=== PATIENT | male | born 1945 | race Caucasian/White ===

== ENCOUNTER 2020-08-12 07:34 | Outpatient (REF) | payer MEDICARE, SELFPAY ==
[2020-08-12 11:46] LABS: Estimated Average Glucose 174 mg/dL; Hemoglobin A1c % 7.7 %
== END 2020-08-12 07:35 | disposition home or self-care (01) ==
LOC: HO.MANLR 07:34
PROVIDERS: PCP Internal Medicine; Visit Provider Internal Medicine
DX: E11.9 Type 2 diabetes mellitus without complications (principal)
CPT/HCPCS: 83036

== ENCOUNTER 2020-11-13 08:08 | Outpatient (REF) | payer MEDICARE, SELFPAY ==
[2020-11-13 12:19] LABS: Alanine Aminotransferase 31 U/L (0-40); Albumin Level 4.2 g/dL (3.5-5.0); Alkaline Phosphatase 97 U/L (39-117); Anion Gap 11 (12-20); Aspartate Amino Transferase 22 U/L (5-37); Bilirubin Total 0.6 mg/dL (0.0-1.0); Blood Urea Nitrogen 13 mg/dL (9-16); Calcium 8.2 mg/dL (8.4-10.2); Carbon Dioxide 29 mmol/L (22-29); Chloride 101 mmol/L (96-108); Cholesterol 125 mg/dL; Estimated Glomerular Filt Rate > 60; Glucose Fasting 192 mg/dL (60-99); HDL Cholesterol 31 mg/dL; LDL Cholesterol Calculated 74 mg/dl; Sodium 137 mmol/L (135-145); Total Protein 6.3 g/dL (6.5-8.0); Triglycerides 101 mg/dL
[2020-11-13 14:01] LABS: Estimated Average Glucose 169 mg/dL; Hemoglobin A1c % 7.5 %
== END 2020-11-13 08:09 | disposition home or self-care (01) ==
LOC: HO.MANLR 08:08
PROVIDERS: PCP Internal Medicine; Visit Provider Internal Medicine
DX: E11.9 Type 2 diabetes mellitus without complications (principal)
CPT/HCPCS: 36415; 80053; 80061; 83036

== ENCOUNTER 2021-02-10 07:35 | Outpatient (REF) | payer MEDICARE, SELFPAY ==
[2021-02-10 12:56] LABS: Estimated Average Glucose 171 mg/dL; Hemoglobin A1c % 7.6 %
== END 2021-02-10 07:36 | disposition home or self-care (01) ==
LOC: HO.MANLDS 07:35
PROVIDERS: PCP Internal Medicine; Visit Provider Internal Medicine
DX: E11.9 Type 2 diabetes mellitus without complications (principal)
CPT/HCPCS: 36415; 83036

== ENCOUNTER 2021-02-17 14:46 | Outpatient (REF) | payer MEDICARE, SELFPAY ==
[2021-02-17 19:13] LABS: INTERNATIONAL NORM RATIO 4.5 (0.9-1.1); Prothrombin Time 54.5 SEC (10.8-13.0)
== END 2021-02-17 14:47 | disposition home or self-care (01) ==
LOC: HO.MANLDS 14:46
PROVIDERS: PCP Internal Medicine; Visit Provider Internal Medicine
DX: I48.0 Paroxysmal atrial fibrillation (principal); Z79.01 Long term (current) use of anticoagulants; Z51.81 Encounter for therapeutic drug level monitoring
CPT/HCPCS: 36415; 85610

== ENCOUNTER 2021-02-21 07:40 | Outpatient (REF) | payer MEDICARE, SELFPAY ==
[2021-02-21 11:13] LABS: INTERNATIONAL NORM RATIO 3.3 (0.9-1.1); Prothrombin Time 39.1 SEC (10.8-13.0)
== END 2021-02-21 07:41 | disposition home or self-care (01) ==
LOC: HO.MANLDS 07:40
PROVIDERS: Visit Provider Internal Medicine
DX: I48.0 Paroxysmal atrial fibrillation (principal)
CPT/HCPCS: 36415; 85610

== ENCOUNTER 2021-02-28 07:43 | Outpatient (REF) | payer MEDICARE, SELFPAY ==
[2021-02-28 11:47] LABS: Prothrombin Time 61.1 SEC (10.8-13.0)
[2021-02-28 11:53] LABS: INTERNATIONAL NORM RATIO 5.1 (0.9-1.1)
== END 2021-02-28 07:44 | disposition home or self-care (01) ==
LOC: HO.MANLDS 07:43
PROVIDERS: PCP Internal Medicine; Visit Provider Internal Medicine
DX: I48.0 Paroxysmal atrial fibrillation (principal)
CPT/HCPCS: 36415; 85610

== ENCOUNTER 2021-03-03 07:28 | Outpatient (REF) | payer MEDICARE, SELFPAY ==
[2021-03-03 12:05] LABS: INTERNATIONAL NORM RATIO 1.9 (0.9-1.1)
== END 2021-03-03 07:29 | disposition home or self-care (01) ==
LOC: HO.MANLR 07:28
PROVIDERS: PCP Internal Medicine; Visit Provider Internal Medicine
DX: I48.0 Paroxysmal atrial fibrillation (principal)
CPT/HCPCS: 36415; 85610

== ENCOUNTER 2021-03-11 07:27 | Outpatient (REF) | payer MEDICARE, SELFPAY ==
[2021-03-11 12:13] LABS: INTERNATIONAL NORM RATIO 1.6 (0.9-1.1); Prothrombin Time 19.5 SEC (10.8-13.0)
== END 2021-03-11 07:28 | disposition home or self-care (01) ==
LOC: HO.MANLDS 07:27
PROVIDERS: Visit Provider Internal Medicine
DX: I48.0 Paroxysmal atrial fibrillation (principal)
CPT/HCPCS: 36415; 85610

== ENCOUNTER 2021-03-14 07:39 | Outpatient (REF) | payer MEDICARE, SELFPAY ==
[2021-03-14 11:08] LABS: INTERNATIONAL NORM RATIO 2.1 (0.9-1.1); Prothrombin Time 25.1 SEC (10.8-13.0)
== END 2021-03-14 07:40 | disposition home or self-care (01) ==
LOC: HO.MANLDS 07:39
PROVIDERS: PCP Internal Medicine; Visit Provider Internal Medicine
DX: I48.0 Paroxysmal atrial fibrillation (principal)
CPT/HCPCS: 36415; 85610

== ENCOUNTER 2021-03-18 08:10 | Outpatient (REF) | payer MEDICARE, SELFPAY ==
[2021-03-18 11:38] LABS: INTERNATIONAL NORM RATIO 2.2 (0.9-1.1); Prothrombin Time 26.5 SEC (10.8-13.0)
== END 2021-03-18 08:11 | disposition home or self-care (01) ==
LOC: HO.MANLDS 08:10
PROVIDERS: PCP Internal Medicine; Visit Provider Internal Medicine
DX: I48.0 Paroxysmal atrial fibrillation (principal)
CPT/HCPCS: 36415; 85610

== ENCOUNTER 2021-03-24 07:47 | Outpatient (REF) | payer MEDICARE, SELFPAY ==
[2021-03-24 11:17] LABS: INTERNATIONAL NORM RATIO 2.7 (0.9-1.1)
== END 2021-03-24 07:48 | disposition home or self-care (01) ==
LOC: HO.MANLDS 07:47
PROVIDERS: PCP Internal Medicine; Visit Provider Internal Medicine
DX: I48.0 Paroxysmal atrial fibrillation (principal)
CPT/HCPCS: 36415; 85610

== ENCOUNTER 2021-04-01 08:02 | Outpatient (REF) | payer MEDICARE, SELFPAY ==
[2021-04-01 11:25] LABS: INTERNATIONAL NORM RATIO 2.5 (0.9-1.1); Prothrombin Time 29.1 SEC (9.9-13.0)
== END 2021-04-01 08:03 | disposition home or self-care (01) ==
LOC: HO.MANLDS 08:02
PROVIDERS: PCP Internal Medicine; Visit Provider Internal Medicine
DX: I48.0 Paroxysmal atrial fibrillation (principal)
CPT/HCPCS: 36415; 85610

== ENCOUNTER 2021-04-02 07:34 | Outpatient (REF) | payer MEDICARE, SELFPAY ==
[2021-04-02 11:14] LABS: Estimated Average Glucose 171 mg/dL; Hemoglobin A1c % 7.6 %
[2021-04-02 11:31] LABS: Alanine Aminotransferase 48 U/L (0-40); Albumin Level 4.2 g/dL (3.5-5.0); Alkaline Phosphatase 97 U/L (39-117); Anion Gap 15 (12-20); Aspartate Amino Transferase 36 U/L (5-37); Bilirubin Total 0.6 mg/dL (0.0-1.0); Blood Urea Nitrogen 13 mg/dL (9-16); Calcium 9.3 mg/dL (8.4-10.2); Carbon Dioxide 28 mmol/L (22-29); Chloride 104 mmol/L (96-108); Cholesterol 144 mg/dL; Estimated Glomerular Filt Rate > 60; Glucose Fasting 137 mg/dL (60-99); HDL Cholesterol 36 mg/dL; LDL Cholesterol Calculated 88 mg/dl; Potassium 4.6 mmol/L (3.3-5.1); Sodium 142 mmol/L (135-145); Total Protein 6.7 g/dL (6.5-8.0); Triglycerides 103 mg/dL
[2021-04-02 11:33] LABS: Creatinine Urine 57.82 mg/dL; Microalbum/Creatinine Ratio Ur 164.3 ug/mg cr
== END 2021-04-02 07:35 | disposition home or self-care (01) ==
LOC: HO.MANLDS 07:34
PROVIDERS: PCP Internal Medicine; Visit Provider Internal Medicine
DX: E11.9 Type 2 diabetes mellitus without complications (principal)
CPT/HCPCS: 36415; 80053; 80061; 82043; 83036

== ENCOUNTER 2021-04-08 07:45 | Outpatient (REF) | payer MEDICARE, SELFPAY ==
[2021-04-08 11:29] LABS: INTERNATIONAL NORM RATIO 3.4 (0.9-1.1); Prothrombin Time 39.4 SEC (9.9-13.0)
== END 2021-04-08 07:46 | disposition home or self-care (01) ==
LOC: HO.MANLDS 07:45
PROVIDERS: PCP Internal Medicine; Visit Provider Internal Medicine
DX: I48.0 Paroxysmal atrial fibrillation (principal)
CPT/HCPCS: 36415; 85610

== ENCOUNTER 2021-04-14 11:00 | Outpatient (REF) | payer MEDICARE, SELFPAY ==
[2021-04-14 12:54] LABS: INTERNATIONAL NORM RATIO 3.3 (0.9-1.1); Prothrombin Time 38.9 SEC (9.9-13.0)
== END 2021-04-14 11:01 | disposition home or self-care (01) ==
LOC: HO.MANLDS 11:00
PROVIDERS: PCP Internal Medicine; Visit Provider Internal Medicine
DX: I48.0 Paroxysmal atrial fibrillation (principal)
CPT/HCPCS: 36415; 85610

== ENCOUNTER 2021-04-22 07:35 | Outpatient (REF) | payer MEDICARE, SELFPAY ==
[2021-04-22 11:52] LABS: INTERNATIONAL NORM RATIO 1.7 (0.9-1.1)
== END 2021-04-22 07:36 | disposition home or self-care (01) ==
LOC: HO.MANLDS 07:35
PROVIDERS: PCP Internal Medicine; Visit Provider Internal Medicine
DX: I48.0 Paroxysmal atrial fibrillation (principal)
CPT/HCPCS: 36415; 85610

== ENCOUNTER 2021-04-29 07:41 | Outpatient (REF) | payer MEDICARE, SELFPAY ==
[2021-04-29 11:35] LABS: INTERNATIONAL NORM RATIO 1.9 (0.9-1.1); Prothrombin Time 22.3 SEC (9.9-13.0)
== END 2021-04-29 07:42 | disposition home or self-care (01) ==
LOC: HO.MANLDS 07:41
PROVIDERS: PCP Internal Medicine; Visit Provider Internal Medicine
DX: I48.0 Paroxysmal atrial fibrillation (principal)
CPT/HCPCS: 36415; 85610

== ENCOUNTER 2021-05-13 07:35 | Outpatient (REF) | payer MEDICARE, SELFPAY ==
[2021-05-13 11:15] LABS: INTERNATIONAL NORM RATIO 2.6 (0.9-1.1); Prothrombin Time 30.1 SEC (9.9-13.0)
== END 2021-05-13 07:36 | disposition home or self-care (01) ==
LOC: HO.MANLDS 07:35
PROVIDERS: PCP Internal Medicine; Visit Provider Internal Medicine
DX: I48.0 Paroxysmal atrial fibrillation (principal)
CPT/HCPCS: 36415; 85610

== ENCOUNTER 2021-06-03 07:43 | Outpatient (REF) | payer MEDICARE, SELFPAY ==
[2021-06-03 12:16] LABS: INTERNATIONAL NORM RATIO 2.4 (0.9-1.1); Prothrombin Time 27.8 SEC (9.9-13.0)
[2021-06-03 13:32] LABS: Estimated Average Glucose 163 mg/dL; Hemoglobin A1c % 7.3 %
== END 2021-06-03 07:44 | disposition home or self-care (01) ==
LOC: HO.MANLDS 07:43
PROVIDERS: PCP Internal Medicine; Visit Provider Internal Medicine
DX: E10.9 Type 1 diabetes mellitus without complications (principal); I48.0 Paroxysmal atrial fibrillation
CPT/HCPCS: 36415; 83036; 85610

== ENCOUNTER 2021-06-24 08:19 | Outpatient (REF) | payer MEDICARE, SELFPAY ==
[2021-06-24 11:20] LABS: INTERNATIONAL NORM RATIO 2.3 (0.9-1.1); Prothrombin Time 26.1 SEC (9.9-13.0)
[2021-06-24 11:41] LABS: Estimated Average Glucose 166 mg/dL; Hemoglobin A1c % 7.4 %
== END 2021-06-24 08:20 | disposition home or self-care (01) ==
LOC: HO.MANLDS 08:19
PROVIDERS: PCP Internal Medicine; Visit Provider Internal Medicine
DX: E10.9 Type 1 diabetes mellitus without complications (principal); I48.0 Paroxysmal atrial fibrillation
CPT/HCPCS: 36415; 83036; 85610

== ENCOUNTER 2021-07-22 08:38 | Outpatient (REF) | payer MEDICARE, SELFPAY ==
[2021-07-22 11:37] LABS: Prothrombin Time 34.6 SEC (9.9-13.0)
== END 2021-07-22 08:39 | disposition home or self-care (01) ==
LOC: HO.MANLDS 08:38
PROVIDERS: PCP Internal Medicine; Visit Provider Internal Medicine
DX: I48.0 Paroxysmal atrial fibrillation (principal)
CPT/HCPCS: 36415; 85610

== ENCOUNTER 2021-08-04 07:35 | Outpatient (REF) | payer MEDICARE, SELFPAY ==
[2021-08-04 11:36] LABS: INTERNATIONAL NORM RATIO 2.3 (0.9-1.1); Prothrombin Time 27.2 SEC (9.9-13.0)
== END 2021-08-04 07:36 | disposition home or self-care (01) ==
LOC: HO.MANLDS 07:35
PROVIDERS: PCP Internal Medicine; Visit Provider Internal Medicine
DX: I48.0 Paroxysmal atrial fibrillation (principal)
CPT/HCPCS: 36415; 85610

== ENCOUNTER 2021-09-01 08:02 | Outpatient (REF) | payer MEDICARE, SELFPAY ==
[2021-09-01 11:13] LABS: INTERNATIONAL NORM RATIO 2.2 (0.9-1.1); Prothrombin Time 25.2 SEC (9.9-13.0)
[2021-09-01 11:19] LABS: Estimated Average Glucose 166 mg/dL; Hemoglobin A1c % 7.4 %
== END 2021-09-01 08:03 | disposition home or self-care (01) ==
LOC: HO.MANLDS 08:02
PROVIDERS: PCP Internal Medicine; Visit Provider Internal Medicine
DX: E10.9 Type 1 diabetes mellitus without complications (principal); I48.0 Paroxysmal atrial fibrillation
CPT/HCPCS: 36415; 83036; 85610

== ENCOUNTER 2021-09-29 08:09 | Outpatient (REF) | payer MEDICARE, SELFPAY ==
[2021-09-29 11:37] LABS: INTERNATIONAL NORM RATIO 2.4 (0.9-1.1); Prothrombin Time 27.5 SEC (9.9-13.0)
== END 2021-09-29 08:10 | disposition home or self-care (01) ==
LOC: HO.MANLDS 08:09
PROVIDERS: PCP Internal Medicine; Visit Provider Internal Medicine
DX: I48.0 Paroxysmal atrial fibrillation (principal)
CPT/HCPCS: 36415; 85610

== ENCOUNTER 2021-10-27 07:53 | Outpatient (REF) | payer MEDICARE, SELFPAY ==
[2021-10-27 11:17] LABS: Prothrombin Time 22.7 SEC (9.9-13.0)
== END 2021-10-27 07:54 | disposition home or self-care (01) ==
LOC: HO.MANLDS 07:53
PROVIDERS: PCP Internal Medicine; Visit Provider Internal Medicine
DX: I48.0 Paroxysmal atrial fibrillation (principal)
CPT/HCPCS: 36415; 85610

== ENCOUNTER 2021-11-03 08:41 | Outpatient (REF) | payer MEDICARE, SELFPAY ==
[2021-11-03 11:24] LABS: Alanine Aminotransferase 49 U/L (0-40); Albumin Level 4.1 g/dL (3.5-5.0); Alkaline Phosphatase 88 U/L (39-117); Anion Gap 11 (12-20); Aspartate Amino Transferase 32 U/L (5-37); Bilirubin Total 0.8 mg/dL (0.0-1.0); Blood Urea Nitrogen 22 mg/dL (9-16); Calcium 9.1 mg/dL (8.4-10.2); Carbon Dioxide 29 mmol/L (22-29); Chloride 104 mmol/L (96-108); Cholesterol 159 mg/dL; Estimated Glomerular Filt Rate > 60; Glucose Fasting 157 mg/dL (60-99); HDL Cholesterol 28 mg/dL; LDL Cholesterol Calculated 86 mg/dl; Potassium 4.1 mmol/L (3.3-5.1); Sodium 140 mmol/L (135-145); Total Protein 6.5 g/dL (6.5-8.0); Triglycerides 227 mg/dL
[2021-11-03 11:59] LABS: Creatinine Urine 112.96 mg/dL; Microalbum/Creatinine Ratio Ur 80.5 ug/mg cr
[2021-11-03 12:09] LABS: Estimated Average Glucose 169 mg/dL; Hemoglobin A1c % 7.5 %
== END 2021-11-03 08:42 | disposition home or self-care (01) ==
LOC: HO.MANLDS 08:41
PROVIDERS: PCP Internal Medicine; Visit Provider Internal Medicine
DX: E10.9 Type 1 diabetes mellitus without complications (principal)
CPT/HCPCS: 36415; 80053; 80061; 82043; 83036

== ENCOUNTER 2021-11-24 08:56 | Outpatient (REF) | payer MEDICARE, SELFPAY ==
[2021-11-24 11:17] LABS: INTERNATIONAL NORM RATIO 1.8 (0.9-1.1); Prothrombin Time 21.1 SEC (9.9-13.0)
== END 2021-11-24 08:57 | disposition home or self-care (01) ==
LOC: HO.MANLDS 08:56
PROVIDERS: PCP Internal Medicine; Visit Provider Internal Medicine
DX: I48.0 Paroxysmal atrial fibrillation (principal)
CPT/HCPCS: 36415; 85610

== ENCOUNTER 2021-12-22 08:47 | Outpatient (REF) | payer MEDICARE, SELFPAY ==
[2021-12-22 11:53] LABS: INTERNATIONAL NORM RATIO 1.9 (0.9-1.1)
== END 2021-12-22 08:48 | disposition home or self-care (01) ==
LOC: HO.MANLDS 08:47
PROVIDERS: PCP Internal Medicine; Visit Provider Internal Medicine
DX: I48.0 Paroxysmal atrial fibrillation (principal)
CPT/HCPCS: 36415; 85610

== ENCOUNTER 2022-01-23 09:28 | Outpatient (REF) | payer MEDICARE, SELFPAY ==
[2022-01-23 11:39] LABS: INTERNATIONAL NORM RATIO 2.3 (0.9-1.1)
[2022-01-23 11:40] LABS: Estimated Average Glucose 157 mg/dL; Hemoglobin A1c % 7.1 %
== END 2022-01-23 09:29 | disposition home or self-care (01) ==
LOC: HO.MANLDS 09:28
PROVIDERS: PCP Internal Medicine; Visit Provider Internal Medicine
DX: E10.9 Type 1 diabetes mellitus without complications (principal); I48.0 Paroxysmal atrial fibrillation
CPT/HCPCS: 36415; 83036; 85610

== ENCOUNTER 2022-02-24 07:43 | Outpatient (REF) | payer MEDICARE, SELFPAY ==
[2022-02-24 11:11] LABS: INTERNATIONAL NORM RATIO 2.6 (0.9-1.1); Prothrombin Time 30.2 SEC (9.9-13.0)
== END 2022-02-24 07:44 | disposition home or self-care (01) ==
LOC: HO.MANLDS 07:43
PROVIDERS: Visit Provider Internal Medicine
DX: I48.0 Paroxysmal atrial fibrillation (principal)
CPT/HCPCS: 36415; 85610

== ENCOUNTER 2022-03-24 07:45 | Outpatient (REF) | payer MEDICARE, SELFPAY ==
[2022-03-24 12:18] LABS: INTERNATIONAL NORM RATIO 2.3 (0.9-1.1); Prothrombin Time 26.9 SEC (10.0-13.1)
== END 2022-03-24 07:46 | disposition home or self-care (01) ==
LOC: HO.MANLDS 07:45
PROVIDERS: Visit Provider Internal Medicine
DX: I48.0 Paroxysmal atrial fibrillation (principal)
CPT/HCPCS: 36415; 85610

== ENCOUNTER 2022-04-20 07:30 | Outpatient (REF) | payer MEDICARE, SELFPAY ==
[2022-04-20 12:01] LABS: INTERNATIONAL NORM RATIO 3.3 (0.9-1.1); Prothrombin Time 39.5 SEC (10.0-13.1)
== END 2022-04-20 07:31 | disposition home or self-care (01) ==
LOC: HO.MANLDS 07:30
PROVIDERS: Visit Provider Internal Medicine
DX: I48.0 Paroxysmal atrial fibrillation (principal)
CPT/HCPCS: 36415; 85610

== ENCOUNTER 2022-04-29 07:31 | Outpatient (REF) | payer MEDICARE, SELFPAY ==
[2022-04-29 13:57] LABS: Estimated Average Glucose 157 mg/dL; Hemoglobin A1c % 7.1 %
[2022-04-29 14:20] LABS: Creatinine Urine 43.16 mg/dL; Microalbum/Creatinine Ratio Ur 53.2 ug/mg cr
[2022-04-29 14:39] LABS: Alanine Aminotransferase 66 U/L (0-40); Alkaline Phosphatase 84 U/L (39-117); Anion Gap 16 (12-20); Aspartate Amino Transferase 46 U/L (5-37); Bilirubin Total 0.7 mg/dL (0.0-1.0); Blood Urea Nitrogen 14 mg/dL (9-16); Calcium 8.5 mg/dL (8.4-10.2); Carbon Dioxide 26 mmol/L (22-29); Chloride 105 mmol/L (96-108); Cholesterol 124 mg/dL; Estimated Glomerular Filt Rate > 60; Glucose Fasting 160 mg/dL (60-99); HDL Cholesterol 31 mg/dL; LDL Cholesterol Calculated 67 mg/dl; Potassium 4.2 mmol/L (3.3-5.1); Sodium 143 mmol/L (135-145); Total Protein 6.4 g/dL (6.5-8.0); Triglycerides 131 mg/dL
== END 2022-04-29 07:32 | disposition home or self-care (01) ==
LOC: HO.MANLDS 07:31
PROVIDERS: Visit Provider Internal Medicine
DX: E10.9 Type 1 diabetes mellitus without complications (principal)
CPT/HCPCS: 36415; 80053; 80061; 82043; 83036

== ENCOUNTER 2022-05-20 07:37 | Outpatient (REF) | payer MEDICARE, SELFPAY ==
[2022-05-20 11:03] LABS: INTERNATIONAL NORM RATIO 3.3 (0.9-1.1); Prothrombin Time 39.5 SEC (10.0-13.1)
[2022-05-20 11:13] LABS: Estimated Average Glucose 157 mg/dL; Hemoglobin A1c % 7.1 %
== END 2022-05-20 07:38 | disposition home or self-care (01) ==
LOC: HO.MANLDS 07:37
PROVIDERS: Visit Provider Internal Medicine
DX: E10.9 Type 1 diabetes mellitus without complications (principal); I48.0 Paroxysmal atrial fibrillation
CPT/HCPCS: 36415; 83036; 85610

== ENCOUNTER 2022-06-03 07:35 | Outpatient (REF) | payer MEDICARE, SELFPAY ==
[2022-06-03 11:46] LABS: INTERNATIONAL NORM RATIO 2.2 (0.9-1.1); Prothrombin Time 25.7 SEC (10.0-13.1)
== END 2022-06-03 07:36 | disposition home or self-care (01) ==
LOC: HO.MANLDS 07:35
PROVIDERS: Visit Provider Internal Medicine
DX: I48.0 Paroxysmal atrial fibrillation (principal)
CPT/HCPCS: 36415; 85610

== ENCOUNTER 2022-06-24 07:32 | Outpatient (REF) | payer MEDICARE, SELFPAY ==
[2022-06-24 11:28] LABS: INTERNATIONAL NORM RATIO 2.5 (0.9-1.1); Prothrombin Time 30.4 SEC (10.0-13.1)
== END 2022-06-24 07:33 | disposition home or self-care (01) ==
LOC: HO.MANLDS 07:32
PROVIDERS: Visit Provider Internal Medicine
DX: I48.0 Paroxysmal atrial fibrillation (principal); Z79.01 Long term (current) use of anticoagulants
CPT/HCPCS: 36415; 85610

== ENCOUNTER 2022-07-22 07:33 | Outpatient (REF) | payer MEDICARE, SELFPAY ==
[2022-07-22 11:10] LABS: INTERNATIONAL NORM RATIO 2.5 (0.9-1.1); Prothrombin Time 29.5 SEC (10.0-13.1)
== END 2022-07-22 07:34 | disposition home or self-care (01) ==
LOC: HO.MANLDS 07:33
PROVIDERS: Visit Provider Internal Medicine
DX: I48.0 Paroxysmal atrial fibrillation (principal)
CPT/HCPCS: 36415; 85610

== ENCOUNTER 2022-08-05 07:59 | Outpatient (REF) | payer MEDICARE, SELFPAY ==
[2022-08-05 11:48] LABS: Estimated Average Glucose 169 mg/dL; Hemoglobin A1c % 7.5 %
== END 2022-08-05 08:00 | disposition home or self-care (01) ==
LOC: HO.MANLDS 07:59
PROVIDERS: Visit Provider Internal Medicine
DX: I48.0 Paroxysmal atrial fibrillation (principal); E11.9 Type 2 diabetes mellitus without complications
CPT/HCPCS: 36415; 83036

== ENCOUNTER 2022-08-19 07:36 | Outpatient (REF) | payer MEDICARE, SELFPAY ==
[2022-08-19 11:30] LABS: INTERNATIONAL NORM RATIO 2.9 (0.9-1.1); Prothrombin Time 34.4 SEC (10.0-13.1)
== END 2022-08-19 07:37 | disposition home or self-care (01) ==
LOC: HO.MANLDS 07:36
PROVIDERS: Visit Provider Physician Assistant
DX: I48.0 Paroxysmal atrial fibrillation (principal); E11.9 Type 2 diabetes mellitus without complications
CPT/HCPCS: 36415; 85610

== ENCOUNTER 2022-08-24 12:00 | Outpatient (REF) | payer MEDICARE, SELFPAY ==
[2022-08-24 13:56] LABS: MANUAL DIFF FLAG NO
[2022-08-24 14:09] LABS: Basophils Absolute Auto 0.1 X10*3/uL (0.0-0.2); Basophils Percent Auto 0.6 % (0-2); Eosinophils Absolute Auto 0.2 X10*3/uL (0.0-0.4); Eosinophils Percent Auto 1.8 % (0-4); Hematocrit 41.5 % (42.0-52.0); Hemoglobin 13.8 g/dl (14.0-18.0); Imm Gran Abs Auto 0.14 X10*3/uL (0.00-0.03); Imm Gran Pct Auto 1.5 % (0.0-0.4); Lymphocytes Absolute Auto 1.7 X10*3/uL (1.2-4.9); Lymphocytes Percent Auto 17.8 % (20-40); Mean Corpuscular HGB Conc 33.3 g/dl (31.0-36.0); Mean Corpuscular Hemoglobin 31.3 pg (27.0-33.0); Mean Corpuscular Volume 94.1 fL (80.0-98.0); Mean Platelet Volume 10.2 fL (9.4-12.4); Monocytes Percent Auto 10.1 % (2-11); Neutrophils Absolute Auto 6.5 x10*3/uL (2.0-8.3); Neutrophils Percent Auto 68.2 % (45-73); Platelet Count 249 X10*3/uL (160-400); Red Blood Count 4.41 X10*6/uL (4.60-5.80); Red Cell Distribution Width 13.4 % (11.0-16.0); White Blood Count 9.6 X10*3/uL (4.8-10.8)
[2022-08-24 14:46] LABS: Alanine Aminotransferase 95 U/L (0-40); Albumin Level 4.5 g/dL (3.5-5.0); Alkaline Phosphatase 92 U/L (39-117); Anion Gap 15 (12-20); Aspartate Amino Transferase 62 U/L (5-37); B Type Natriuretic Peptide 54 pg/mL (<100); Bilirubin Total 0.7 mg/dL (0.0-1.0); Blood Urea Nitrogen 17 mg/dL (9-16); Calcium 9.5 mg/dL (8.4-10.2); Carbon Dioxide 30 mmol/L (22-29); Chloride 100 mmol/L (96-108); Estimated Glomerular Filt Rate > 60; Glucose Random 143 mg/dL (60-115); Potassium 4.5 mmol/L (3.3-5.1); Sodium 140 mmol/L (135-145); Total Protein 7.1 g/dL (6.5-8.0)
== END 2022-08-24 12:01 | disposition home or self-care (01) ==
LOC: HO.MANLDS 12:00
PROVIDERS: Visit Provider Internal Medicine
DX: I50.9 Heart failure, unspecified (principal)
CPT/HCPCS: 36415; 80053; 83880; 85025

== ENCOUNTER 2022-09-02 07:35 | Outpatient (REF) | payer MEDICARE, SELFPAY ==
[2022-09-02 11:36] LABS: INTERNATIONAL NORM RATIO 1.7 (0.9-1.1); Prothrombin Time 20.2 SEC (10.0-13.1)
== END 2022-09-02 07:36 | disposition home or self-care (01) ==
LOC: HO.MANLDS 07:35
PROVIDERS: Visit Provider Physician Assistant
DX: I48.0 Paroxysmal atrial fibrillation (principal); E11.9 Type 2 diabetes mellitus without complications
CPT/HCPCS: 36415; 85610

== ENCOUNTER 2022-09-16 07:43 | Outpatient (REF) | payer MEDICARE, SELFPAY ==
[2022-09-16 11:28] LABS: INTERNATIONAL NORM RATIO 3.4 (0.9-1.1); Prothrombin Time 41.4 SEC (10.0-13.1)
[2022-09-16 12:15] LABS: B Type Natriuretic Peptide 42 pg/mL (<100)
== END 2022-09-16 07:44 | disposition home or self-care (01) ==
LOC: HO.MANLDS 07:43
PROVIDERS: Visit Provider Internal Medicine
DX: I50.9 Heart failure, unspecified (principal); I48.0 Paroxysmal atrial fibrillation
CPT/HCPCS: 36415; 83880; 85610

== ENCOUNTER 2022-09-23 07:27 | Outpatient (REF) | payer MEDICARE, SELFPAY ==
[2022-09-23 11:27] LABS: INTERNATIONAL NORM RATIO 2.4 (0.9-1.1); Prothrombin Time 28.7 SEC (10.0-13.1)
[2022-09-23 11:37] LABS: Estimated Average Glucose 163 mg/dL; Hemoglobin A1c % 7.3 %
[2022-09-23 12:11] LABS: Alanine Aminotransferase 72 U/L (0-40); Alkaline Phosphatase 83 U/L (39-117); Anion Gap 12 (12-20); Aspartate Amino Transferase 71 U/L (5-37); Blood Urea Nitrogen 19 mg/dL (9-16); Calcium 8.9 mg/dL (8.4-10.2); Carbon Dioxide 33 mmol/L (22-29); Chloride 101 mmol/L (96-108); Cholesterol 151 mg/dL; Estimated Glomerular Filt Rate > 60; Glucose Random 123 mg/dL (60-115); HDL Cholesterol 34 mg/dL; LDL Cholesterol Calculated 86 mg/dl; Potassium 3.7 mmol/L (3.3-5.1); Sodium 142 mmol/L (135-145); Total Protein 6.2 g/dL (6.5-8.0); Triglycerides 155 mg/dL
[2022-09-23 12:19] LABS: Bilirubin Total 0.7 mg/dL (0.0-1.0)
== END 2022-09-23 07:28 | disposition home or self-care (01) ==
LOC: HO.MANLDS 07:27
PROVIDERS: Visit Provider Internal Medicine
DX: I50.9 Heart failure, unspecified (principal); I48.0 Paroxysmal atrial fibrillation; E11.9 Type 2 diabetes mellitus without complications
CPT/HCPCS: 36415; 80053; 80061; 83036; 85610

== ENCOUNTER 2022-10-13 11:25 | Outpatient (REF) | payer MEDICARE, SELFPAY ==
[2022-10-13 15:28] LABS: INTERNATIONAL NORM RATIO 2.1 (0.9-1.1); Prothrombin Time 25.1 SEC (10.0-13.1)
== END 2022-10-13 11:26 | disposition home or self-care (01) ==
LOC: HO.MANLDS 11:25
PROVIDERS: Visit Provider Physician Assistant
DX: I48.0 Paroxysmal atrial fibrillation (principal); E11.9 Type 2 diabetes mellitus without complications
CPT/HCPCS: 36415; 85610

== ENCOUNTER 2022-11-10 07:34 | Outpatient (REF) | payer MEDICARE, SELFPAY ==
[2022-11-10 11:36] LABS: Prothrombin Time 23.6 SEC (10.0-13.1)
[2022-11-10 11:47] LABS: Estimated Average Glucose 157 mg/dL; Hemoglobin A1c % 7.1 %
[2022-11-10 12:02] LABS: Alanine Aminotransferase 68 U/L (0-40); Albumin Level 3.9 g/dL (3.5-5.0); Alkaline Phosphatase 99 U/L (39-117); Anion Gap 15 (12-20); Aspartate Amino Transferase 59 U/L (5-37); Bilirubin Total 0.8 mg/dL (0.0-1.0); Blood Urea Nitrogen 19 mg/dL (9-16); Calcium 8.9 mg/dL (8.4-10.2); Carbon Dioxide 27 mmol/L (22-29); Chloride 103 mmol/L (96-108); Cholesterol 151 mg/dL; Estimated Glomerular Filt Rate > 60; Glucose Random 217 mg/dL (60-115); HDL Cholesterol 29 mg/dL; LDL Cholesterol Calculated 72 mg/dl; Sodium 141 mmol/L (135-145); Total Protein 6.1 g/dL (6.5-8.0); Triglycerides 254 mg/dL
== END 2022-11-10 07:35 | disposition home or self-care (01) ==
LOC: HO.MANLDS 07:34
PROVIDERS: Visit Provider Physician Assistant
DX: I48.0 Paroxysmal atrial fibrillation (principal); E11.9 Type 2 diabetes mellitus without complications
CPT/HCPCS: 36415; 80053; 80061; 83036; 85610

== ENCOUNTER 2022-12-07 07:29 | Outpatient (REF) | payer MEDICARE, SELFPAY ==
[2022-12-07 11:17] LABS: INTERNATIONAL NORM RATIO 1.8 (0.9-1.1); Prothrombin Time 21.3 SEC (10.0-13.1)
== END 2022-12-07 07:30 | disposition home or self-care (01) ==
LOC: HO.MANLDS 07:29
PROVIDERS: Visit Provider Physician Assistant
DX: I48.0 Paroxysmal atrial fibrillation (principal); E11.9 Type 2 diabetes mellitus without complications
CPT/HCPCS: 36415; 85610

== ENCOUNTER 2022-12-22 07:46 | Outpatient (REF) | payer MEDICARE, SELFPAY ==
[2022-12-22 12:12] LABS: INTERNATIONAL NORM RATIO 2.3 (0.9-1.1); Prothrombin Time 27.1 SEC (10.0-13.1)
== END 2022-12-22 07:47 | disposition home or self-care (01) ==
LOC: HO.MANLDS 07:46
PROVIDERS: Visit Provider Physician Assistant
DX: I48.0 Paroxysmal atrial fibrillation (principal); E11.9 Type 2 diabetes mellitus without complications
CPT/HCPCS: 36415; 85610

== ENCOUNTER 2023-01-13 07:28 | Outpatient (REF) | payer MEDICARE, SELFPAY ==
[2023-01-13 12:22] LABS: Prothrombin Time 23.7 SEC (10.0-13.1)
== END 2023-01-13 07:29 | disposition home or self-care (01) ==
LOC: HO.MANLDS 07:28
PROVIDERS: Visit Provider Physician Assistant
DX: I48.0 Paroxysmal atrial fibrillation (principal); E11.9 Type 2 diabetes mellitus without complications
CPT/HCPCS: 36415; 85610

== ENCOUNTER 2023-02-03 07:36 | Outpatient (REF) | payer MEDICARE, SELFPAY ==
[2023-02-03 12:16] LABS: B Type Natriuretic Peptide 43 pg/mL (<100)
== END 2023-02-03 07:37 | disposition home or self-care (01) ==
LOC: HO.MANLDS 07:36
PROVIDERS: Visit Provider Internal Medicine
DX: I50.9 Heart failure, unspecified (principal)
CPT/HCPCS: 36415; 83880

== ENCOUNTER 2023-02-09 07:40 | Outpatient (REF) | payer MEDICARE, SELFPAY ==
[2023-02-09 11:42] LABS: Prothrombin Time 36.3 SEC (10.0-13.1)
[2023-02-09 14:20] LABS: B Type Natriuretic Peptide 41 pg/mL (<100)
== END 2023-02-09 07:41 | disposition home or self-care (01) ==
LOC: HO.MANLDS 07:40
PROVIDERS: Visit Provider Internal Medicine
DX: I48.0 Paroxysmal atrial fibrillation (principal); E11.9 Type 2 diabetes mellitus without complications; I50.9 Heart failure, unspecified
CPT/HCPCS: 36415; 83880; 85610

== ENCOUNTER 2023-03-08 07:39 | Outpatient (REF) | payer MEDICARE, SELFPAY ==
[2023-03-08 11:40] LABS: Alanine Aminotransferase 63 U/L (0-40); Alkaline Phosphatase 92 U/L (39-117); Anion Gap 12 (12-20); Aspartate Amino Transferase 44 U/L (5-37); Bilirubin Total 0.9 mg/dL (0.0-1.0); Blood Urea Nitrogen 18 mg/dL (9-16); Calcium 9.3 mg/dL (8.4-10.2); Carbon Dioxide 29 mmol/L (22-29); Chloride 104 mmol/L (96-108); Estimated Glomerular Filt Rate > 60; Glucose Random 150 mg/dL (60-115); Potassium 3.9 mmol/L (3.3-5.1); Sodium 141 mmol/L (135-145); Total Protein 6.2 g/dL (6.5-8.0)
[2023-03-08 11:44] LABS: INTERNATIONAL NORM RATIO 1.5 (0.9-1.1); Prothrombin Time 17.8 SEC (10.0-13.1)
[2023-03-08 11:46] LABS: Estimated Average Glucose 154 mg/dL
== END 2023-03-08 07:40 | disposition home or self-care (01) ==
LOC: HO.MANLDS 07:39
PROVIDERS: Visit Provider Physician Assistant
DX: I48.0 Paroxysmal atrial fibrillation (principal); E11.9 Type 2 diabetes mellitus without complications
CPT/HCPCS: 36415; 80053; 83036; 85610

== ENCOUNTER 2023-03-23 07:35 | Outpatient (REF) | payer MEDICARE, SELFPAY ==
[2023-03-23 11:50] LABS: Prothrombin Time 36.2 SEC (10.0-13.1)
[2023-03-23 11:57] LABS: B Type Natriuretic Peptide 68 pg/mL (<100)
== END 2023-03-23 07:36 | disposition home or self-care (01) ==
LOC: HO.MANLDS 07:35
PROVIDERS: Visit Provider Physician Assistant
DX: I48.0 Paroxysmal atrial fibrillation (principal); E11.9 Type 2 diabetes mellitus without complications; I50.9 Heart failure, unspecified
CPT/HCPCS: 36415; 83880; 85610

== ENCOUNTER 2023-04-06 07:33 | Outpatient (REF) | payer MEDICARE, SELFPAY ==
[2023-04-06 13:33] LABS: INTERNATIONAL NORM RATIO 2.1 (0.9-1.1); Prothrombin Time 25.2 SEC (10.0-13.1)
== END 2023-04-06 07:34 | disposition home or self-care (01) ==
LOC: HO.MANLDS 07:33
PROVIDERS: Visit Provider Physician Assistant
DX: I48.0 Paroxysmal atrial fibrillation (principal); E11.9 Type 2 diabetes mellitus without complications
CPT/HCPCS: 36415; 85610

== ENCOUNTER 2023-04-26 07:32 | Outpatient (REF) | payer MEDICARE, SELFPAY ==
[2023-04-26 14:01] LABS: INTERNATIONAL NORM RATIO 2.4 (0.9-1.1); Prothrombin Time 29.7 SEC (11.1-13.3)
== END 2023-04-26 07:33 | disposition home or self-care (01) ==
LOC: HO.MANLDS 07:32
PROVIDERS: Visit Provider Physician Assistant
DX: I48.0 Paroxysmal atrial fibrillation (principal); E11.9 Type 2 diabetes mellitus without complications
CPT/HCPCS: 36415; 85610

== ENCOUNTER 2023-05-21 07:33 | Outpatient (REF) | payer MEDICARE, SELFPAY ==
[2023-05-21 14:13] LABS: Prothrombin Time 24.2 SEC (11.1-13.3)
[2023-05-21 14:26] LABS: Estimated Average Glucose 154 mg/dL
[2023-05-21 15:55] LABS: Alanine Aminotransferase 112 U/L (0-40); Albumin Level 3.6 g/dL (3.5-5.0); Alkaline Phosphatase 88 U/L (39-117); Anion Gap 12 (12-20); Aspartate Amino Transferase 115 U/L (5-37); Bilirubin Total 0.5 mg/dL (0.0-1.0); Blood Urea Nitrogen 9 mg/dL (9-16); Calcium 8.6 mg/dL (8.4-10.2); Carbon Dioxide 29 mmol/L (22-29); Chloride 102 mmol/L (96-108); Estimated Glomerular Filt Rate > 60; Glucose Random 223 mg/dL (60-115); Potassium 3.5 mmol/L (3.3-5.1); Sodium 139 mmol/L (135-145); Total Protein 6.1 g/dL (6.5-8.0)
== END 2023-05-21 07:34 | disposition home or self-care (01) ==
LOC: HO.MANLDS 07:33
PROVIDERS: Visit Provider Physician Assistant
DX: I48.0 Paroxysmal atrial fibrillation (principal); E11.9 Type 2 diabetes mellitus without complications
CPT/HCPCS: 36415; 80053; 83036; 85610

== ENCOUNTER 2023-06-07 07:38 | Outpatient (REF) | payer MEDICARE, SELFPAY ==
[2023-06-07 13:36] LABS: Alanine Aminotransferase 65 U/L (0-40); Albumin Level 3.6 g/dL (3.5-5.0); Alkaline Phosphatase 82 U/L (39-117); Anion Gap 10 (12-20); Aspartate Amino Transferase 51 U/L (5-37); Bilirubin Total 0.7 mg/dL (0.0-1.0); Blood Urea Nitrogen 9 mg/dL (9-16); Calcium 8.6 mg/dL (8.4-10.2); Carbon Dioxide 30 mmol/L (22-29); Chloride 105 mmol/L (96-108); Cholesterol 130 mg/dL (<200); Estimated Glomerular Filt Rate > 60; Glucose Random 145 mg/dL (60-115); HDL Cholesterol 31 mg/dL (>40); LDL Cholesterol Calculated 67 mg/dL (<100); Potassium 4.1 mmol/L (3.3-5.1); Sodium 141 mmol/L (135-145); Total Protein 6.2 g/dL (6.5-8.0); Triglycerides 162 mg/dL (<150)
== END 2023-06-07 07:39 | disposition home or self-care (01) ==
LOC: HO.MANLDS 07:38
PROVIDERS: Visit Provider Physician Assistant
DX: E78.5 Hyperlipidemia, unspecified (principal)
CPT/HCPCS: 36415; 80053; 80061

== ENCOUNTER 2023-06-14 07:37 | Outpatient (REF) | payer MEDICARE, SELFPAY ==
[2023-06-14 14:06] LABS: INTERNATIONAL NORM RATIO 2.3 (0.9-1.1); Prothrombin Time 28.2 SEC (11.1-13.3)
== END 2023-06-14 07:38 | disposition home or self-care (01) ==
LOC: HO.MANLDS 07:37
PROVIDERS: Visit Provider Physician Assistant
DX: I48.0 Paroxysmal atrial fibrillation (principal); E11.9 Type 2 diabetes mellitus without complications
CPT/HCPCS: 36415; 85610

== ENCOUNTER 2023-07-12 08:20 | Outpatient (REF) | payer MEDICARE, SELFPAY ==
[2023-07-12 13:28] LABS: INTERNATIONAL NORM RATIO 1.8 (0.9-1.1); Prothrombin Time 21.6 SEC (11.1-13.3)
== END 2023-07-12 08:21 | disposition home or self-care (01) ==
LOC: HO.MANLDS 08:20
PROVIDERS: Visit Provider Physician Assistant
DX: I48.0 Paroxysmal atrial fibrillation (principal)
CPT/HCPCS: 36415; 85610

== ENCOUNTER 2023-07-26 07:33 | Outpatient (REF) | payer MEDICARE, SELFPAY ==
[2023-07-26 13:20] LABS: INTERNATIONAL NORM RATIO 3.2 (0.9-1.1); Prothrombin Time 38.9 SEC (11.1-13.3)
== END 2023-07-26 07:34 | disposition home or self-care (01) ==
LOC: HO.MANLDS 07:33
PROVIDERS: Visit Provider Physician Assistant
DX: I48.0 Paroxysmal atrial fibrillation (principal); E11.9 Type 2 diabetes mellitus without complications
CPT/HCPCS: 36415; 85610

== ENCOUNTER 2023-08-16 07:33 | Outpatient (REF) | payer MEDICARE, SELFPAY ==
[2023-08-16 13:33] LABS: INTERNATIONAL NORM RATIO 1.5 (0.9-1.1); Prothrombin Time 18.1 SEC (11.1-13.3)
[2023-08-16 13:45] LABS: Estimated Average Glucose 171 mg/dL; Hemoglobin A1c % 7.6 % (<6.0)
[2023-08-16 14:05] LABS: B Type Natriuretic Peptide 51 pg/mL (<100)
[2023-08-16 14:14] LABS: Alanine Aminotransferase 76 U/L (0-40); Albumin Level 3.8 g/dL (3.5-5.0); Alkaline Phosphatase 95 U/L (39-117); Anion Gap 9 (12-20); Aspartate Amino Transferase 71 U/L (5-37); Bilirubin Total 0.6 mg/dL (0.0-1.0); Blood Urea Nitrogen 18 mg/dL (9-16); Carbon Dioxide 30 mmol/L (22-29); Chloride 103 mmol/L (96-108); Cholesterol 111 mg/dL (<200); Estimated Glomerular Filt Rate > 60; Glucose Random 245 mg/dL (60-115); HDL Cholesterol 28 mg/dL (>40); LDL Cholesterol Calculated 50 mg/dL (<100); Potassium 3.9 mmol/L (3.3-5.1); Sodium 138 mmol/L (135-145); Total Protein 6.4 g/dL (6.5-8.0); Triglycerides 167 mg/dL (<150)
== END 2023-08-16 07:34 | disposition home or self-care (01) ==
LOC: HO.MANLDS 07:33
PROVIDERS: Visit Provider Internal Medicine
DX: I50.9 Heart failure, unspecified (principal); I48.0 Paroxysmal atrial fibrillation; E11.9 Type 2 diabetes mellitus without complications
CPT/HCPCS: 36415; 80053; 80061; 83036; 83880; 85610

== ENCOUNTER 2023-09-13 08:01 | Outpatient (REF) | payer MEDICARE, SELFPAY ==
[2023-09-13 10:01] LABS: B Type Natriuretic Peptide 59 pg/mL (<100)
== END 2023-09-13 08:02 | disposition home or self-care (01) ==
LOC: HO.MANLDS 08:01
PROVIDERS: Visit Provider Internal Medicine
DX: I50.9 Heart failure, unspecified (principal)
CPT/HCPCS: 36415; 83880

== ENCOUNTER 2023-10-26 07:22 | Outpatient (REF) | payer MEDICARE, SELFPAY ==
[2023-10-26 11:20] LABS: INTERNATIONAL NORM RATIO 2.4 (0.9-1.1); Prothrombin Time 29.1 SEC (11.1-13.3)
[2023-10-26 11:25] LABS: Estimated Average Glucose 174 mg/dL; Hemoglobin A1c % 7.7 % (<6.0)
[2023-10-26 11:27] LABS: B Type Natriuretic Peptide 79 pg/mL (<100)
== END 2023-10-26 07:23 | disposition home or self-care (01) ==
LOC: HO.MANLNP 07:22
PROVIDERS: Referring Provider Internal Medicine; Visit Provider Physician Assistant
DX: I48.0 Paroxysmal atrial fibrillation (principal); E11.9 Type 2 diabetes mellitus without complications; I50.9 Heart failure, unspecified
CPT/HCPCS: 36415; 83036; 83880; 85610

== ENCOUNTER 2023-11-23 07:29 | Outpatient (REF) | payer MEDICARE, SELFPAY ==
[2023-11-23 13:27] LABS: INTERNATIONAL NORM RATIO 3.4 (0.9-1.1); Prothrombin Time 41.3 SEC (11.1-13.3)
== END 2023-11-23 07:30 | disposition home or self-care (01) ==
LOC: HO.MANLDS 07:29
PROVIDERS: Visit Provider Internal Medicine
DX: I48.91 Unspecified atrial fibrillation (principal)
CPT/HCPCS: 36415; 85610

== ENCOUNTER 2023-12-08 07:26 | Outpatient (REF) | payer MEDICARE, SELFPAY ==
[2023-12-08 13:48] LABS: INTERNATIONAL NORM RATIO 1.9 (0.9-1.1)
== END 2023-12-08 07:27 | disposition home or self-care (01) ==
LOC: HO.MANLDS 07:26
PROVIDERS: Visit Provider Internal Medicine
DX: I48.91 Unspecified atrial fibrillation (principal)
CPT/HCPCS: 36415; 85610

== ENCOUNTER 2023-12-21 07:45 | Outpatient (REF) | payer MEDICARE, SELFPAY ==
[2023-12-21 13:42] LABS: INTERNATIONAL NORM RATIO 4.2 (0.9-1.1); Prothrombin Time 50.9 SEC (11.1-13.3)
[2023-12-21 13:45] LABS: Estimated Average Glucose 163 mg/dL; Hemoglobin A1c % 7.3 % (<6.0)
[2023-12-21 14:05] LABS: Alanine Aminotransferase 175 U/L (0-40); Albumin Level 3.6 g/dL (3.5-5.0); Alkaline Phosphatase 110 U/L (39-117); Anion Gap 12 (12-20); Aspartate Amino Transferase 168 U/L (5-37); Bilirubin Total 0.9 mg/dL (0.0-1.0); Blood Urea Nitrogen 14 mg/dL (9-16); Calcium 9.2 mg/dL (8.4-10.2); Carbon Dioxide 30 mmol/L (22-29); Chloride 106 mmol/L (96-108); Estimated Glomerular Filt Rate > 60; Glucose Random 121 mg/dL (60-115); Potassium 3.3 mmol/L (3.3-5.1); Sodium 145 mmol/L (135-145); Total Protein 6.2 g/dL (6.5-8.0)
== END 2023-12-21 07:46 | disposition home or self-care (01) ==
LOC: HO.MANLDS 07:45
PROVIDERS: Visit Provider Internal Medicine
DX: I48.0 Paroxysmal atrial fibrillation (principal); E11.9 Type 2 diabetes mellitus without complications
CPT/HCPCS: 36415; 80053; 83036; 85610

== ENCOUNTER 2023-12-28 07:34 | Outpatient (REF) | payer MEDICARE, SELFPAY ==
[2023-12-28 13:05] LABS: INTERNATIONAL NORM RATIO 1.4 (0.9-1.1); Prothrombin Time 17.2 SEC (11.1-13.3)
[2023-12-28 13:26] LABS: Cholesterol 117 mg/dL (<200); HDL Cholesterol 25 mg/dL (>40); LDL Cholesterol Calculated 68 mg/dL (<100); Triglycerides 122 mg/dL (<150)
== END 2023-12-28 07:35 | disposition home or self-care (01) ==
LOC: HO.MANLDS 07:34
PROVIDERS: Visit Provider Physician Assistant
DX: I48.0 Paroxysmal atrial fibrillation (principal); E11.9 Type 2 diabetes mellitus without complications
CPT/HCPCS: 36415; 80061; 85610

== ENCOUNTER 2024-01-04 07:39 | Outpatient (REF) | payer MEDICARE, SELFPAY ==
[2024-01-04 13:39] LABS: INTERNATIONAL NORM RATIO 2.3 (0.9-1.1); Prothrombin Time 27.6 SEC (11.1-13.3)
== END 2024-01-04 07:40 | disposition home or self-care (01) ==
LOC: HO.MANLDS 07:39
PROVIDERS: Visit Provider Physician Assistant
DX: I48.0 Paroxysmal atrial fibrillation (principal); E11.9 Type 2 diabetes mellitus without complications
CPT/HCPCS: 36415; 85610

== ENCOUNTER 2025-01-09 13:41 | Outpatient (REF) | payer MEDICARE, SELFPAY ==
--- OUTSIDE RECORDS SUMMARY | 2025-01-09 16:50 | XMS_ITS | Data Portability ---
Author Organization [facility] Address [address] [place] [address] Assessment Encounter Date Assessment Date Assessment LastModified by Organization Details LastModified Time 11/06/2024 11/06/2024 shingles/ pneum vax [email or web address] Not available 11/01/2024 14:10:39 Plan of Treatment Reminders Order Date Submit Date Provider Last Modified By Organization Details Last Modified Time Details Appointments FOLLOW UP 15 2024 11:45A CORNELIA BRANHAM Not available Not available Not available Lab CMP, serum or plasma 2024 025 [facility], [address] [place] [address], [place], [address], 01/09/2025 12:06:26 hemoglobi n A1c, QN, blood 2024 025 [facility], [address] [place] [address], [id number], 01/09/2025 12:06:26 iron + TIBC + ferritin, serum 2024 025 [facility], [address] [place] [address], [address], 01/09/2025 12:06:26 CBC w/ auto diff 2024 025 [facility], [address] [place] [address], [id number], 01/09/2025 12:06:26 Referral None recorded. Procedures None recorded. Surgeries None recorded. Imaging PFT, complete 2024 [facility], [address] [place], [address], 01/09/2025 11:57:22 XR, chest, 2 view 2024 [facility], [address] [place], [address], 01/09/2025 11:57:22 Medication Orders Trelegy Ellipta 200 mcg-62.5 mcg-25 mcg powder for inhalatio n 2024 025 [id number], [address], [place], [id number], 01/09/2025 11:50:40 hydroxyzi ne HCl 25 mg tablet 2023 024 [place] [id number], [address], [place], [phone], 07/04/2024 15:24:56 ondansetr on 8 mg disintegr ating tablet 2023 025 [facility][id number], [address], [place], [phone], 01/09/2025 11:50:46 Lyumjev CliffordPen U-100 Insulin 100 unit/mL subcutane ous 2023 024 [place] [id number], [address], [place], [phone], 04/24/2024 14:58:00 Patient TargetsNo targets recorded. Patient Instructions Encounter Date Encounter Id Patient Instructions Last Modified By Organization Details Last Modified Time 02/23/2024 [id number] pulse oximetry* Not available 02/23/2024 16:53:38 chronic obstructive pulmonary disease (COPD): care instructions Not available 02/23/2024 16:53:36 learning about copd and how to prevent lung infections Not available 02/23/2024 16:53:36 Reason for Referral None Reported. Results Created Date Observation Date Name Description Value Unit Range Abnormal Flag Note LastModifiedBy Organization Detail LastModifiedTime 02/23/20 24 02/23/2024 pulse oxime try* Result 98 Not Available [facility] [address] [facility] [address], [place], [address], 02/22/2024 16:31:58 Result Notes None recorded. Problems Name Problem SNOMED Code Status Onset Date Resolution Date Notes Provider Name and Address Organization Details Recorded Time Paroxysm al atrial fibrilla tion 891065182 Active 2020 Not Available [facility] 3 18:27:48 Depressi ve disorder 34959989 Active 2021 Not Available [facility] 3 18:27:48 Congesti ve heart failure 34414199 Active 2021 Not Available [facility] 3 18:27:49 Pneumoni a 635711885 Active 2021 Not Available [facility] 3 18:27:48 Degenera tion of lumbar interver tebral disc 04384069 Active 2021 Not Available [facility] 3 18:27:48 Asthma 147387448 Active 2022 Not Available [facility] 3 18:27:48 Drug-ind uced hypokale juancarlos 875186742 Active 2022 Not Available [facility] 3 18:27:48 Pneumoni tis 571194158 Active 2022 Not Available [facility] 3 18:27:48 Cough 16208677 Active 2022 Sony Peacock DO [address] [facility], [place], [address], [facility] - [facility] 3 14:11:35 Atrial fibrilla tion 43659015 Active 2022 CORNELIA ABARCA [address] [place], [address], [facility] 3 09:29:09 Niacin deficien cy 536721236 Active 2022 Sony Peacock, DO [address] [place] [address], [address], [facility] 3 15:29:58 Recurren t falls 313813680 Active 2022 Sony Peacock, DO [address] [place] [address], [address], [facility] 3 11:19:24 Type 2 diabetes mellitus 25902079 Active 2022 CORNELIA ABARCA [address] [place] [address], [address], [facility] 3 14:14:50 Abdomina l aortic aneurysm 205752421 Active 2023 CORNELIA ABARCA [address] [place] [address], [address], [facility] 4 15:11:58 Liver enzymes level above referenc e range 316610107 Active 2023 Sony Peacock, DO [address] [place] [address], [address], [facility] 4 22:10:50 Inflamma tory hyperker atotic dermatos is 82469437 Active 2023 Sony Peacock DO [address] [place] [address], [address], [facility] 4 16:52:56 Suicidal thoughts 2307954 Active 2023 CORNELIA ABARCA [address] [place] [address], [address], [facility] 4 15:10:37 Insomnia 040701255 Active 2023 CORNELIA ABARCA [address] [place] [address], [address], [facility] 4 15:10:51 Nausea and vomiting 74217500 Active 2023 CORNELIA ABARCA [address] [place], [address], [facility] 4 15:18:59 Panic disorder 157892776 Active 2023 CORNELIA ABARCA [address] [place], [address], [facility] 4 15:19:38 Osteoart hritis of right hip joint 27488729662 9107 Active 2023 Sony Peacock DO [address] [place] [address], [address], [facility] 4 16:17:33 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 24643954222 9100 Active 2024 Sony Peacock DO [address] [place] [address], [address], [facility] 5 15:13:15 Dyspnea on exertion 06242287 Active 2024 CORNELIA ABARCA [address] [place] [address], [address], [facility] 5 11:47:32 Type 1 diabetes mellitus 02930682 Active 2017 Not Available [facility] 3 18:27:49 Hyperlip idemia 17024605 Active 2017 Not Available [facility] 3 18:27:49 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 Not Available [facility] 3 18:27:48 Transien t cerebral ischemia 216405791 Active 2017, 08/2016 Not Available [facility] 3 18:27:48 Coronary arterios clerosis 63821117 Active 2017 Not Available [facility] 3 18:27:49 Coronary artery bypass graft operatio n planned 706470793 Active 2017 x3 Not Available [facility] 3 18:27:49 Hyperten sive disorder 90082759 Active 2017 Not Available [facility] 3 18:27:48 Osteoart hritis 177974884 Active 2017 neck, bilateral knees Not Available [facility] 3 18:27:49 Anxiety 04617089 Active 2017 Not Available [facility] 3 18:27:49 Stable angina 361572300 Active 2017 Not Available [facility] 3 18:27:48 Gastroes ophageal reflux disease 728534410 Active 2017 Not Available [facility] 3 18:27:48 Chronic obstruct melva pulmonar y disease 99920395 Active 2017 Not Available [facility] 3 18:27:48 May' s esophagu s 876568426 Active 2017 Not Available [facility] 3 18:27:48 History of tobacco use 36018415375 03 Active 2017 Not Available [facility] 3 18:27:48 Cardiome kate 6820703 Active 2017 mild Not Available [facility] 3 18:27:49 Onychomy cosis 095805864 Active 2017 Not Available [facility] 3 18:27:49 Carotid artery stenosis 04063759 Active 2017 Not Available [facility] 3 18:27:49 Cramp 61879917 Active 2017 Not Available [facility] 3 18:27:49 Orthosta tic hypotens ion 09217066 Active 2017 Not Available [facility] 3 18:27:48 Problem Notes None recorded. Procedures Surgical History Date Name Laterality Status Provider Name and Address Organization Details Recorded Time 025 Corticosteroid Injection completed Sony Peacock DO [address] [place] [address], [phone], [facility] 11/06/2024 15:12:05 024 Excision and closure completed Sony Peacock DO [address] [place], [address], [facility] 02/23/2024 16:47:58 021 Removal of Foreign Body completed CORNELIA ABARCA [address] [place], [address], [facility] 01/24/2021 14:18:21 Imaging Results None recorded. Procedure Notes None recorded. Medical Equipment None Reported. Allergies Allergen ID Allergen Name Allergen Category Reaction Reaction Severity Criticality Documentation Date Start Date Code Code System Note Provider Name and Address Organization Details Recorded Time 1963 Iodinated contrast media (substanc e) medicatio n Not available Not available Not available 04/18/2018 34938 2003 SNOMED Sherine [facility] 8 08:46:56 Medications Name Sig Start Date Stop Date Status Note LastModified by Organization Details LastModified Time Prescriptio n - Change active Not Available Not Available N ot Available cyclobenzap rine 10 mg tablet TAKE 1 TABLET BY MOUTH THREE TIMES A DAY NEEDED 11/19 completed Not Available Not Available Not Available amoxicillin 500 mg capsule active Not Available Not Available Not Available furosemide 40 mg tablet TAKE 1 AND 1/2 TABLETS BY MOUTH DAILY 1.5 TABLETS DAILY BY MOUTH active Not Available Not Available No t Available methocarbam ol 500 mg tablet take 1 tablet every 6 hours as needed 12/12 completed Not Available Not Available Not Available atorvastati n 80 mg tablet TAKE 1 TABLET BY MOUTH DAILY active Not Available Not Available No t Available prednisone 10 mg tablet take 40 mg x 2 daystake 30 mg x 2 days take 20 mg x 2 daystake 10 mg x 2 days 09/13 completed Not Available Not Available Not Available doxycycline hyclate 100 mg capsule TAKE 1 CAPSULE BY MOUTH TWICE DAILY WITH FOOD AND A GLASS OF WATER FOR 5 DAYS 01/30 completed Not Available Not Available Not Available trazodone 50 mg tablet TAKE 1 TABLET BY MOUTH EVERY DAY AT BEDTIME 07/30 completed Not Available Not Available Not Available oxybutynin chloride ER 10 mg tablet,exte nded release 24 hr 04/18 completed Not Available Not Available Not Available azithromyci n 250 mg tablet TAKE 1 TABLET BY MOUTH EVERY DAY active Not Available Not Available No t Available alprazolam 1 mg tablet TAKE 1/2 TO 1 TABLET BY MOUTH THREE TIMES DAILY NEEDED active Not Available Not Available No t Available tizanidine 4 mg tablet 1 tab [id number] prn. do not drink or drive with med. do not mix with alprazola m or tramadol. 12/12 completed Not Available Not Available Not Available amiodarone 200 mg tablet TAKE 1 TABLET BY MOUTH DAILY active Not Available Not Available No t Available ondansetron HCl 8 mg tablet 04/18 completed Not Available Not Available Not Available fluconazole 200 mg tablet 04/18 completed Not Available Not Available Not Available lisinopril 20 mg tablet 04/18 completed Not Available Not Available Not Available ondansetron HCl 4 mg tablet TAKE 1 TABLET BY MOUTH EVERY 8 HOURS NEEDED FOR NAUSEA OR VOMITING active Not Available Not Available No t Available prednisone 20 mg tablet TAKE 2 TABLETS BY MOUTH DAILY FOR 3 DAYS active Not Available Not Available No t Available moxifloxaci n 400 mg tablet TAKE 1 TABLET BY MOUTH EVERY DAY FOR 10 DAYS 01/30 completed Not Available Not Available Not Available Lantus U-100 Insulin 100 unit/mL subcutaneou s solution ADMINISTE R 37 UNITS UNDER THE SKIN AT BEDTIME DIRECTED active Not Available Not Available No t Available potassium chloride ER 10 mEq tablet,exte nded release TAKE 1 TABLET BY MOUTH EVERY DAY active Not Available Not Available No t Available metronidazo le 500 mg tablet Take 1 tablet every 8 hours by oral route for 10 days. 09/08 completed Not Available Not Available Not Available clopidogrel 75 mg tablet TAKE 1 TABLET BY MOUTH EVERY DAY 12/04 completed Not Available Not Available Not Available amlodipine 5 mg tablet TAKE 1 TABLET BY MOUTH EVERY DAY active Not Available Not Available No t Available ciprofloxac in 500 mg tablet 04/18 completed Not Available Not Available Not Available tramadol 50 mg tablet TAKE 1 TO 2 TABLETS BY MOUTH EVERY 6 HOURS NEEDED active Not Available Not Available No t Available ondansetron 8 mg disintegrat ing tablet DISSOLVE 1 TABLET ON THE TONGUE TWICE DAILY FOR 14 DAYS NEEDED 01/09 completed Not Available Not Available Not Available isosorbide mononitrate ER 120 mg tablet,exte nded release 24 hr 04/18 completed Not Available Not Available Not Available ketorolac 0.5 % eye drops INSTILL 1 DROP IN THE LEFT EYE THREE TIMES DAILY FOR 3 WEEKS FOLLOWING SURGERY active Not Available Not Available No t Available cefadroxil 500 mg capsule TAKE 1 CAPSULE BY MOUTH TWICE DAILY 11/19 completed Not Available Not Available Not Available isosorbide mononitrate ER 60 mg tablet,exte nded release 24 hr TAKE 1 AND 1/2 TABLETS BY MOUTH DAILY IN THE MORNING active Not Available Not Available No t Available amoxicillin 875 mg tablet 10/31 completed Not Available Not Available Not Available famotidine 20 mg tablet ON 12/29 TAKE 1 TABLET BY MOUTH IN THE MORNING AND 1 IN THE EVENING THEN ON 12/30 TAKE 1 TABLET IN THE MORNING PRIOR TO CATH 01/30 completed Not Available Not Available Not Available nitroglycer in 0.4 mg/hr transdermal 24 hour patch APPLY 1 PATCH TOPICALLY EVERY MORNING AND REMOVE AT NIGHT 01/01 completed Not Available Not Available Not Available gentamicin 0.3 % eye drops 04/18 completed Not Available Not Available Not Available baclofen 10 mg tablet Take 1 tablet every day by oral route in the evening. 11/19 completed Not Available Not Available Not Available amlodipine 10 mg tablet 04/18 completed Not Available Not Available Not Available doxycycline monohydrate 100 mg capsule 01/30 completed Not Available Not Available Not Available cephalexin 500 mg capsule 12/12 completed Not Available Not Available Not Available pantoprazol e 40 mg tablet,kat yed release TAKE 1 TABLET BY MOUTH EVERY DAY active Not Available Not Available No t Available oseltamivir 75 mg capsule 04/18 completed Not Available Not Available Not Available niacinamide 500 mg tablet TAKE 1 TABLET BY MOUTH EVERY DAY active Not Available Not Available No t Available warfarin 5 mg tablet TAKE 1 TABLET BY MOUTH EVERY DAY DIRECTED 01/13 completed Not Available Not Available Not Available nitroglycer in 0.[address] 1 tablet every day by sublingua l route as needed for 30 days. 01/30 completed Not Available Not Available Not Available montelukast 10 mg tablet TAKE 1 TABLET BY MOUTH AT BEDTIME 01/30 completed Not Available Not Available Not Available hydroxyzine HCl 25 mg tablet TAKE 1 TABLET BY MOUTH THREE TIMES DAILY NEEDED FOR ANXIETY OR PANIC ATTACKS active Not Available Not Available No t Available bisacodyl 5 mg tablet,kat yed release TAKE 4 TABLETS BY MOUTH ONCE DIRECTED active Not Available Not Available No t Available mupirocin 2 % topical ointment APPLY TOPICALLY TO BIOPSY SITE TWICE DAILY UNTIL HEALED 01/30 completed Not Available Not Available Not Available furosemide 20 mg tablet TAKE 3 TABLETS BY MOUTH DAILY active Not Available Not Available No t Available mirtazapine 15 mg tablet TAKE 1 TABLET BY MOUTH EVERY DAY AT BEDTIME 05/01 completed Not Available Not Available Not Available metoprolol succinate ER 25 mg tablet,exte nded release 24 hr 04/18 completed Not Available Not Available Not Available levofloxaci n 500 mg tablet TAKE 1 TABLET BY MOUTH EVERY 24 HOURS FOR 10 DAYS 07/16 completed Not Available Not Available Not Available methylpredn isolone 4 mg tablets in a dose pack FOLLOW PACKAGE DIRECTION S 12/21 completed Not Available Not Available Not Available doxycycline hyclate 100 mg tablet TAKE 1 TABLET BY MOUTH TWICE DAILY FOR 10 DAYS 11/14 completed Not Available Not Available Not Available amoxicillin 500 mg-potassiu m clavulanate 125 mg tablet TAKE 1 TABLET BY MOUTH EVERY 12 HOURS FOR 10 DAYS 12/13 completed Not Available Not Available Not Available escitalopra m 10 mg tablet TAKE 1 TABLET BY MOUTH EVERY DAY 02/12 completed Not Available Not Available Not Available ezetimibe 10 mg tablet TAKE 1 TABLET BY MOUTH DAILY active Not Available Not Available No t Available BD Ultra-Fine Mini Pen Needle 31 gauge x 3/16 USE DIRECTED FOUR TIMES DAILY active Not Available Not Available No t Available isosorbide 01/30 completed Not Available Not Available Not Available ProAir HFA 90 mcg/actuati on aerosol inhaler Inhale 2 puffs every 4 hours by inhalatio n route as needed for 30 days. active Not Available Not Available No t Available Humalog KwikPen (U-100) Insulin 100 unit/mL subcutaneou s INJECT 10 UNITS UNDER THE SKIN 3 TIMES A DAY DIRECTED 09/13 completed Not Available Not Available Not Available GaviLyte-G 236 gram-22.74 gram-6.74 gram-5.86 gram oral solution 12/12 completed Not Available Not Available Not Available niacin (inositol niacinate) 500 mg tablet 1 po qd 2022 active Not Available Not Available Not Avai lable Xarelto 10 mg tablet TAKE 1 TABLET BY MOUTH EVERY DAY active Not Available Not Available No t Available Contour Next Test Strips TEST BLOOD SUGAR LEVELS 8-10 TIMES DAILY active Not Available Not Available No t Available Contour Next EZ Meter USE DIRECTED active Not Available Not Available No t Available Eliquis 5 mg tablet TAKE 1 TABLET BY MOUTH TWICE DAILY 02/21 completed Not Available Not Available Not Available BD Insulin Syringe Ultra-Fine 0.3 mL 31 gauge x 5/16 USE DIRECTED active Not Available Not Available No t Available BD Insulin Syringe Ultra-Fine 0.5 mL 31 gauge x 5/16 use as directed once daily 11/19 completed Not Available Not Available Not Available Culturelle 15 billion cell sprinkle capsule Take 1 capsule twice a day by oral route for 30 days. 10/31 completed Not Available Not Available Not Available Breo Ellipta 100 mcg-25 mcg/dose powder for inhalation active Not Available Not Available N ot Available Breo Ellipta 200 mcg-25 mcg/dose powder for inhalation Inhale 1 puff every day by inhalatio n route. active Not Available Not Available No t Available Basaglar KwikPen U-100 Insulin 15 u sq daily 11/19 completed Not Available Not Available Not Available Trelegy Ellipta 100 mcg-62.5 mcg-25 mcg powder for inhalation INHALE 1 PUFF BY MOUTH EVERY DAY 01/09 completed Not Available Not Available Not Available Dexcom G6 Sensor device USE DIRECTED 01/01 completed Not Available Not Available Not Available Dexcom G6 Procedure Rn USE DIRECTED 01/01 completed Not Available Not Available Not Available Dexcom G6 Transmitter device USE DIRECTED TO MONITOR BLOOD GLUCOSE LEVELS 8-10 TIMES A DAY. 01/01 completed Not Available Not Available Not Available Lyumjev KwikPen U-100 Insulin 100 unit/mL subcutaneou s ADMINISTE R 10 UNITS UNDER THE SKIN THREE TIMES DAILY NEEDED active Not Available Not Available No t Available Trelegy Ellipta 200 mcg-62.5 mcg-25 mcg powder for inhalation Inhale 1 puff every day by inhalatio n route as directed for 30 days. 2024 active Not Available Not Available Not Avai lable [place]illa COVID-19 Ag Self Test kit TEST DIRECTED TODAY 05/01 completed Not Available Not Available Not Available Vitals Date Recorded Body height Body mass index (BMI) Body weight Heart rate Respiratory rate Oxygen saturation Oxygen saturation in Arterial blood by Pulse oximetry Systolic blood pressure Diastolic blood pressure Provider Name and Address Organization Details Last Updated DateTime 4 170.18 cm 21.3 kg/m2 31962.2 g 76 /min 16 /min 98 % 98 % 104 mm[Hg] 66 mm[Hg] Sony Peacock, DO [address] [place], [address] 4 16:21:18 Date Recorded Body height Body mass index (BMI) Body weight Heart rate Oxygen saturation Oxygen saturation in Arterial blood by Pulse oximetry Systolic blood pressure Diastolic blood pressure Provider Name and Address Organization Details Last Updated DateTime 4 170.18 cm 21.8 kg/m2 57381.9 8 g 78 /min 98 % 98 % 124 mm[Hg] 74 mm[Hg] Lis Chairez [facility] 4 14:59:09 Date Recorded Body height Body mass index (BMI) Body weight Heart rate Oxygen saturation Oxygen saturation in Arterial blood by Pulse oximetry Systolic blood pressure Diastolic blood pressure Provider Name and Address Organization Details Last Updated DateTime 5 170.18 cm 21.7 kg/m2 07710.6 2 g 64 /min 96 % 96 % 120 mm[Hg] 74 mm[Hg] Lis Chairez [facility] 5 11:39:43 Social History Question Answer Notes LastModified by Organizat ion Details LastModified Time Tobacco Smoking Status Former Sm[facility] 04/18/2018 11:44:09 What Was The Date Of Your Most Recent Tobacco Screening? 01/09/2025 [email or web address] Information not available 01/09/2025 Do You Or Have You Ever Used Any Other Forms Of Tobacco Or Nicotine? No [email or web address] Information not available 02/12/2023 Sex: Unknown Functional Status None recorded. Mental Status None recorded. Family History Nothing Reported. Medical History No medical history recorded. Immunizations Vaccine Type Date Status Note Provider Nam e and Address Organization Details Recorded Time COVID-19, mRNA, LNP-S, PF, 30 mcg/0.3 mL dose 1 completed Not Available On license of [facility] 05/26/2023 18:27:49 COVID-19, mRNA, LNP-S, PF, 30 mcg/0.3 mL dose 2 completed Not Available On license of [facility] 05/26/2023 18:27:49 influenza, unspecified formulation 2 completed Not Available On license of [facility] 05/26/2023 18:27:49 influenza, unspecified formulation 4 completed Lis gonzales [facility] 06/09/2024 08:19:48 Influenza, split virus, quadrivalent, preservative 9 completed Not Available On license of [facility] 05/26/2023 18:27:49 Tdap 1 completed Not Available On license of [facility] 05/26/2023 18:27:49 COVID-19, mRNA, LNP-S, PF, 30 mcg/0.3 mL dose 1 completed Not Available On license of [facility] 05/26/2023 18:27:49 COVID-19, mRNA, LNP-S, PF, 30 mcg/0.3 mL dose 1 completed Not Available On license of [facility] 05/26/2023 18:27:49 pneumococcal polysaccharide PPV23 8 completed Not Available On license of [facility] 05/26/2023 18:27:49 Influenza, split virus, quadrivalent, preservative 8 completed Not Available On license of [facility] 05/26/2023 18:27:49 Past Encounters Encounter ID Performer Location Encounter Start Date Encounter Closed Date Diagnosis/Indication Diagnosis SNOMED-CT Code Diagnosis ICD10 Code Diagnosis Note [id number] DO [facility] [address] [facility],[place] [address] 04/18/2018 10:22:11 04/18/2018 12:40:09 Chronic obstructive pulmonary disease 42815067 J44.9 Type 1 kat betes mellitus 45702382 E10.9 a1c is stable and is ok will cont current tx plan [id number] December ANGEL Villalpando [facility] [address] [facility] [address], [place] [address] 05/06/2018 13:27:54 05/06/2018 16:40:13 History of tobacco use 0591427538 103 Z87.891 long time ago Hypertensive disorder 38 999141 I10 stable Pain of le ft shoulder joint [id number] M25.512 likely strain/spa sm of trapezius muscle. shoulder joint appears normal do not take methocarba mol and alprazolam at the same time. understand s no drinking or driving while on methocarba mol understand s medication may cause drowsiness rest/heat/ stretch/ma ssage Coronary arteriosclerosis 25700419 I25.10 on plavix can't take NSAIDS 6630 Snoy Peacock [facility] Internal Medicine [address] [facility], [facility]e [facility] [place] [address] 05/11/2018 11:12:25 05/11/2018 13:23:40 Hypertensive disorder 59871987 I10 stable overall Type 1 kat betes mellitus 49183918 E10.9 a1c is stable and is ok will cont current tx plan Diarrhea 68711973 R19.7 no new antibiotic s needs labw work and to see GI for colonoscop y will refer to dr daniels 0247 Sony Peacock [facility] Internal Medicine [address] [facility], [place] [address] 06/14/2018 15:17:42 06/14/2018 16:47:08 Type 1 diabetes mellitus 45634386 E10.9 a1c is stable and is ok will cont current tx plan at 6.7 Orthostati c hypotension 56545429 I95.1 currently has been stable and is without major issue Hypertensive disorder 38 300909 I10 stable overall no chng in meds Coronary arteriosclerosis 54701022 I25.10 quiet awaiting cardiology Chronic ob structive pulmonary disease 43614343 J44.9 still gets winded but using Breo with good results Gastroesop hageal reflux disease 134857175 K21.9 cont to [place] 39743 Sony Peacock [facility] Internal Medicine [address] [facility],[place] [address] 09/12/2018 14:46:43 09/12/2018 16:09:54 Chronic obstructive pulmonary disease 34590047 J44.9 still gets winded but using Breo with good results Type 1 kat betes mellitus 88464841 E10.9 a1c is stable and is ok will cont current tx plan at 6.7 Coronary arteriosclerosis 22534563 I25.10 quiet awaiting cardiology 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 3029 13478 K22.70 cont on omeprazole Hypertensive disorder 38 436631 I10 stable overall no chng in meds Gastroesop hageal reflux disease 120844278 K21.9 cont to use otc med prilosec as i dir Diffuse sp asm of esophagus 21495958 K22.4 recc we try sl ntg as if he is having true angina it will certainly help with that [id number] Sony Peacock [facility] Internal Medicine [address] [facility],[place] [address] 12/12/2018 14:27:54 12/12/2018 15:21:09 Gastroesophageal reflux disease 052050072 K21.9 cont to use otc med prilosec as i dir and cont take ntg for spasm 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 3029 85575 K22.70 cont on omeprazole Type 1 kat betes mellitus 54379057 E10.9 a1c is stable and is ok will cont current tx plan at 7.1 (6.7) Hypertensive disorder 38 943792 I10 stable overall no chng in meds [id number] Sony Peacock [facility] Internal Medicine [address] [facility],[place] [address] 03/21/2019 14:07:26 03/21/2019 15:58:48 Chronic obstructive pulmonary disease 97084110 J44.9 still getting winded at times but using Breo with pretty good results breo is to be cont Type 1 kat betes mellitus 20210371 E10.9 a1c is stable and is ok will cont current tx plan at 7.1 (7.2) Anxiety 97590075 F41.9 seems to be controlled Hypertensive disorder 38 677667 I10 stable overall bp is excellent has lost 5 lbs no chng in meds Coronary arteriosclerosis 66543335 I25.10 asymptomat ic no cp no exert dyspnea out of proportion to activity 57159 [facility] [place] Internal Medicine [address] [facility],[place] [address] 06/07/2019 11:30:45 06/07/2019 12:10:00 Fatigue 67743060 R53.83 Vitamin D deficiency 347 42261 E55.9 Tick bite without infection 419140752 W57.XXXA Diarrhea 71298965 R19.7 Hypoglycemia 532551826 E 16.2 monitor blood sugar closely do not take insulin if blood sugar is lower than 100 healthy diet and fluids/res t if worsens or passes out [place] [facility] [place] [id number] [facility] [address] [facility], [place] [facility] [place] [address] 06/21/2019 10:33:00 06/21/2019 11:38:35 Chronic obstructive pulmonary disease 98733843 J44.9 still getting winded at times but using Breo with pretty good results breo is to be cont Hypertensive disorder 38 450128 I10 stable overall bp is excellent has lost 5 lbs but this has stopped no chng in meds Type 1 kat betes mellitus 69155346 E10.9 a1c is stable and is ok will cont current tx plan at 7.2 was 7.1 (7.2) Hepatitis C screening 41 3691255 Z11.59 Stable angina 091943811 I20.8 asymptomat ic relates has been using sl ntg which helps with belching but has not required for cp actual Cardiomegaly 6681941 I51 .7 quiet and no evid of chf Malaise and fatigue 2717 11955 R53.81 79161 [facility] [place] Internal Medicine [address] [facility],[place] [address] 07/03/2019 14:23:55 07/03/2019 15:45:50 Diarrhea 02010706 R19.7 improving complete flagyl Chronic ob structive pulmonary disease 78898343 J44.9 copd exacerbati on fu if sx worsen or go to ER if severe use inhalers as rx'd watch blood sugar closely while on prednisone Hypertensive disorder 38 531986 I10 stable 16601 [facility] [place] Internal Medicine [address] [facility], [place] [address] 07/12/2019 14:18:14 07/12/2019 15:37:16 Syncope 206071434 R55 as this has happened several times before, recommend seeing cardio pt should also see neuro as he has history of stroke and 2 tia Acute exac erbation of chronic obstructive pulmonary disease 778693430 J44.1 sx not resolved despite pred + zpack, then levaquin - still has 2 days remaining monitor bs closely while on the pred Diarrhea 24937765 R19.7 bowels are improving still on culturelle Anxiety 04116466 F41.9 lots of anxiety would like to have alprazolam increased Cerebrovas cular accident 771366313 I63.9 47764 [facility] [address] [facility], [place] [address] 07/28/2019 13:36:19 07/28/2019 14:22:49 Diarrhea 96949956 R19.7 bowels are improving continue culturelle Syncope 893268116 R55 being worked up by cardio Tick bite 54201057 W57.X XXA no bullseye rash will monitor [place] dose 43765 [facility] [address] [facility] [place] [address] 09/08/2019 11:06:22 09/08/2019 11:46:43 Sick sinus syndrome 20715902 I49.5 pacemaker will be placed next week Diarrhea 21506204 R19.7 bowels are improving continue culturelle Acute sinusitis 39024657 J01.90 49174 Sony Peacock DO [facility] Internal Medicine [address] [facility], [place] [address] 10/31/2019 13:28:39 10/31/2019 15:03:18 Chronic obstructive pulmonary disease 18189088 J44.9 still getting winded at times but using Breo with pretty good results breo is to be cont Type 1 kat betes mellitus 32056327 E10.9 a1c is stable and is ok will cont current tx plan at 7.2 was 7.1 (7.2) Anxiety 14007678 F41.9 seems to be controlled Mobitz typ e II atrioventricular block 46289413 I44.1 Had pacer placed in Dec - no issues since feels well now 88151 Sony Peacock DO [facility] Internal Medicine [address] [facility], [place] [address] 01/30/2020 13:42:29 01/30/2020 15:23:34 Chronic obstructive pulmonary disease 22739121 J44.9 still getting winded at times but using Breo with pretty good results breo is to be cont and samples were given also gave him some n95 masks Hypertensive disorder 38 795618 I10 stable overall bp is excellent has lost 5 lbs but this has stopped no chng in meds Type 1 kat betes mellitus 60374598 E10.9 a1c is stable and is ok will cont current tx as his glucose readings have dropped off and is now using lower doses of the lantus Anxiety 11552215 F41.9 seems to be controlled 29722 Sony Peacock DO [facility] [address],[place] roselia Hanna [facility] [place] [address] 03/27/2020 12:08:21 03/27/2020 12:32:16 Type 1 diabetes mellitus 41199088 E10.9 glucose going low at times and is trying to monitor and adjust have decreased lantus/bas agl to 12 u and even prob lower if he is still down discussed pt the need to keep gluc up and NOT to let gluc go too low it is more important than to worry about it being too high also will cut the dose of humalog down to 5 u instead of 10 for the meals still using a lot of glucose test strips to keep check ing his levels Cerebrovas cular accident 369669019 I63.9 no furtther issues and is asymptomat ic Coronary arteriosclerosis 71426909 I25.10 asymptomat ic no cp no exert dyspnea out of proportion to activity Chronic ob structive pulmonary disease 52544263 J44.9 still getting winded at times but using Breo with pretty good results breo is to be cont and samples were given also gave him some n95 masks Hypertensive disorder 38 593256 I10 stable overall bp is excellent has lost 5 lbs but this has stopped no chng in meds [id number] Sony Peacock [facility] Internal Medicine [address] [facility],[place] roselia Hanna [facility] [place] [address] 05/15/2020 13:49:29 05/15/2020 14:55:22 Chronic obstructive pulmonary disease 43577303 J44.9 still getting winded at times but using Breo with pretty good results breo is to be cont and samples were given also gave him some n95 masks Type 1 kat betes mellitus 00557265 E10.9 glucose going low at times and is trying to monitor and adjust have decreased lantus/bas agl to 12 u and even prob lower if he is still down discussed pt the need to keep gluc up and NOT to let gluc go too low it is more important than to worry about it being too high also will cut the dose of humalog down to 5 u instead of 10 for the meals still using a lot of glucose test strips to keep check ing his levels 8 times a day sometimes more!!! so we will try to get him a freestyle leyla monitor kit as this would be much more conducive to the amount of testing he requires Anxiety 84063348 F41.9 seems to be controlled he is walking his neighbor's dog and this has helped Hypertensive disorder 38 995231 I10 stable overall bp is excellent had lost 5 lbs but this is now better [place]ng in med [id number] Sony Peacock [facility] Internal Medicine [address] [facility],[place] roselia [place] [facility] [address] 08/14/2020 13:51:54 08/14/2020 16:52:21 Type 1 diabetes mellitus 76449902 E10.9 wglucose going low at times and is trying to monitor and adjust checking at least 4-6 x day have decreased lantus/bas agl to 12 u and even prob lower if he is still down discussed pt the need to keep gluc up and NOT to let gluc go too low it is more important than to worry about it being too high also will cut the dose of humalog down to 5 u instead of 10 for the meals still using a lot of glucose test strips to keep check ing his levels 8 times a day sometimes more!!! his insurance denied the freestyle leyla which SUCKS bc insurance SUCKS he will have to keep checking his glucose 6+ times a day unfortunat dinah Hyperlipidemia 77434360 E78.5 will be following Chronic ob structive pulmonary disease 07141151 J44.9 still getting winded at times but using Breo with pretty good results breo is to be cont and samples were given also gave him some n95 masks Coronary arteriosclerosis 37771072 I25.10 asymptomat ic no cp no exert dyspnea out of proportion to activity relates no presyncope etc as he has the pacer defib Hypertensive disorder 38 852444 I10 stable overall bp is excellent had lost 5 lbs but this is now better no chng in meds [id number] Sony Peacock, [facility] Internal Medicine [address],Clarisse [place] [facility] [address] 11/19/2020 14:37:35 11/19/2020 15:56:50 Type 1 diabetes mellitus 64766560 E10.9 patient had completely uncontroll ed glucose readings with a difficult time using the correct humalog =dose glucose goes high and noted at times with glucose going low at times and is trying to monitor and adjust checking at least 4-6 x day have decreased lantus/bas agl to 12 u and even prob lower if he is still down discussed pt the need to keep gluc up and NOT to let gluc go too low it is more important than to worry about it being too high also will cut the dose of humalog down to 5 u instead of 10 for the meals still using a lot of glucose test strips to keep check ing his levels 8 times a day sometimes more!!! his insurance denied the freestyle leyla which SUCKS bc insurance SUCKS he will have to keep checking his glucose 6+ times a day unfortunat dinah Anxiety 19777007 F41.9 seems to be controlled he is walking his neighbor's dog and this has helped Hypertensive disorder 38 621359 I10 stable overall bp is excellent had lost 5 lbs but this is now better no chng in meds Chronic ob structive pulmonary disease 17753342 J44.9 still getting winded at times but using Breo with pretty good results breo is to be cont and samples were given also gave him some n95 masks Cerebrovas cular accident 694104972 I63.9 no furtther issues and is asymptomat ic but is now on eliquis due to palpitatio ns and tachycardi a Carotid ar edith stenosis 80841083 I65.29 will be needing a rechk in the summer Coronary arteriosclerosis 53109824 I25.10 asymptomat ic no cp no exert dyspnea out of proportion to activity relates no presyncope etc as he has the pacer defib 32192 Sony Peacock DO [facility] Internal Medicine [address] [facility],[place] it[place] D [facility] [place] [address] 12/04/2020 15:16:28 12/04/2020 15:47:40 Type 1 diabetes mellitus 30155089 E10.9 patient had some uncontroll ed glucose readings with a difficult time using the correct humalog =dose glucose goes high and noted at times with glucose going low at times and is trying to monitor and adjust checking at least 4-6 x day have decreased lantus/bas agl to 12 u and even prob lower if he is still down discussed pt the need to keep gluc up and NOT to let gluc go too low it is more important than to worry about it being too high also will cut the dose of humalog down to 5 u instead of 10 for the meals still using a lot of glucose test strips to keep check ing his levels 8 times a day sometimes more!!! his insurance denied the freestyle leyla which SUCKS bc insurance SUCKS he will have to keep checking his glucose 6+ times a day unfortunat dinah Atrial fibrillation 4943 6004 I48.91 currently stableon amiodarone 200 bid followed by cardiology Carotid ar edith stenosis 29941460 I65.29 will be needing a rechk in the summer Coronary arteriosclerosis 15039759 I25.10 asymptomat ic no cp no exert dyspnea out of proportion to activity relates no presyncope etc as he has the pacer defib Paroxysmal atrial fibrillation 295599137 I48.0 here now is controlled and in NSR after he was placed on amiodarone 200 bid and his pain is still present with any exertion Hypertensive disorder 38 535196 I10 stable overall bp is excellent had lost 5 lbs but this is now better no chng in meds will need to watch closely given increase in prob angina and new onset afib [id number] Sony Peacock DO [facility] Internal Medicine [address] [facility],[place] [address] 01/01/2021 14:09:00 01/01/2021 15:26:46 Chronic obstructive pulmonary disease 83044163 J44.9 still getting winded at times but using Breo with pretty good results breo is to be cont and samples were given also gave him some n95 masks Hypertensive disorder 38 953988 I10 stable overall bp is excellent had lost 5 lbs but this is now better no chng in meds will need to watch closely given increase in prob angina and new onset afib Type 1 kat betes mellitus 36483360 E10.9 patient had some uncontroll ed glucose readings with a difficult time using the correct humalog =dose glucose goes high and noted at times with glucose going low at times and is trying to monitor and adjust checking at least 4-6 x day last a1c in oct was 7.5 have decreased lantus/bas agl to 12 u and even prob lower if he is still down discussed pt the need to keep gluc up and NOT to let gluc go too low it is more important than to worry about it being too high also will cut the dose of humalog down to 5 u instead of 10 for the meals still using a lot of glucose test strips to keep check ing his levels 8 times a day sometimes more!!! his insurance denied the freestyle leyla which SUCKS bc insurance SUCKS he will have to keep checking his glucose 6+ times a day unfortunat dinah Depressive disorder 1822 7557 F32.9 feeling down overall reviewed in detail and will rechk in a few weeks as he doesnt want to hav e a new med now Coronary arteriosclerosis 52477573 I25.10 asymptomat ic no cp no exert dyspnea out of proportion to activity relates no presyncope etc as he has the pacer defib Paroxysmal atrial fibrillation 027536023 I48.0 here now is controlled and in NSR after he was placed on amiodarone 200 bid and his pain is still present with any exertion 11614 CORN[facility] Internal Medicine [address] [facility],Clarisse Hanna [facility] [place] [address] 01/17/2021 14:00:31 01/17/2021 15:09:09 Type 1 diabetes mellitus 38942198 E10.[address] with gwen stephens process 23225 CORNELIA [facility] Internal Medicine [address] [facility],[place] [address] 01/24/2021 13:58:04 01/24/2021 16:46:09 Infection of tick bite 901218920 B99.9 removed and will treat with doxy 06653 CORNELIA ABARCA [facility] Internal Medicine [address] [facility],[place] [address] 01/27/2021 11:24:35 01/27/2021 14:19:46 Type 1 diabetes mellitus 93194356 E10.[address] with instructio n process will call if any further confusion [id number] CORNELIA ABARCA [facility] Internal Medicine [address] [facility],[place] [address] 01/28/2021 13:58:48 01/29/2021 08:40:53 Warfarin monitoring status 856612656 Z51.81 sent referral patient has correct medication will fu with coumadin clinic for monitoring Type 1 kat betes mellitus 59832373 E10.[address] with instructio n process will call if any further confusion [id number] Sony Peacock DO [facility] Internal Medicine [address] [facility],[place] [address] 02/17/2021 13:52:52 02/17/2021 14:48:35 Type 1 diabetes mellitus 24482735 E10.9 patient had some uncontroll ed glucose readings with a difficult time using the correct humalog =dose glucose goes high and noted at times with glucose going low at times and is trying to monitor and adjust checking at least 4-6 x day last a1c in oct was 7.5 have decreased lantus/bas agl to 12 u and even prob lower if he is still down discussed pt the need to keep gluc up and NOT to let gluc go too low it is more important than to worry about it being too high also will cut the dose of humalog down to 5 u instead of 10 for the meals still using a lot of glucose test strips to keep check ing his levels 8 times a day sometimes more!!! his insurance denied the freestyle leyla which SUCKS bc insurance SUCKS he will have to keep checking his glucose 6+ times a day unfortunat dinah Anxiety 22904487 F41.9 seems to be controlled but still quite upset re his med insurance he is walking his neighbor's dog and this has helped Hypertensive disorder 38 489201 I10 stable overall bp is excellent had lost 5 lbs but this is now better no chng in meds will need to watch closely given increase in prob angina and new onset afib Chronic ob structive pulmonary disease 26383938 J44.9 still getting winded at times but using Breo with pretty good results but insurance wont cover despite PA we will try a letter Paroxysmal atrial fibrillation 657292566 I48.0 here now is controlled and in NSR after he was placed on amiodarone 200 bid and his pain is still present with any exertion insur will not provide for eliquis we will try warfarin and see how he does Coronary arteriosclerosis 45242581 I25.10 asymptomat ic no cp no exert dyspnea out of proportion to activity relates no presyncope etc as he has the pacer defib 46342 Sony Peacock [facility] Internal Medicine [address] [facility],[place] [address] 03/24/2021 13:53:11 03/24/2021 14:59:29 Chronic obstructive pulmonary disease 48490244 J44.9 still getting winded at times but using Breo with pretty good results but insurance wont cover despite PA we tried a letter without help Stable angina 605772726 I20.8 asymptomat ic relates has been using sl ntg which helps with belching but has not required for cp actual relates that he exerts he does get sob and stops doing thatcardio lo states it was ok to increase dose of isosrb to 90mg and i changed the rx to reflect that [id number] Sony Peacock [facility] Internal Medicine [address] [facility],[place] [address] 06/25/2021 08:17:04 06/25/2021 15:25:16 Hypertensive disorder 93316898 I10 stable overall bp is excellent had lost 5 lbs but this is now better no chng in meds will need to watch closely given increase in prob angina and new onset afib Type 1 kat betes mellitus 03802842 E10.9 now on freestyle leyla and is doing great with much better control of his sugarshe remains active and last a1c was 7.4have decreased lantus/bas agl to 12 u and even prob lower if he is still down discussed pt the need to keep gluc up and NOT to let gluc go too low it is more important than to worry about it being too high also will cut the dose of humalog down to 5 u instead of 10 for the meals s Paroxysmal atrial fibrillation 854724458 I48.0 here now is controlled and in NSR after he was placed on amiodarone 200 bid and his pain is still present with any exertion insur will not provide for eliquis we will try warfarin and see how he does Coronary arteriosclerosis 68996588 I25.10 asymptomat ic no cp no exert dyspnea out of proportion to activity relates no presyncope etc as he has the pacer defibrelat es he is frustrated that he gets more winded with exertion 42663 DO Flakita Coleman Internal Medicine [address],[place] [address] 10/24/2021 08:41:04 10/24/2021 12:14:02 Paroxysmal atrial fibrillation 719613320 I48.0 here now is controlled and in NSR after he was placed on amiodarone 200 bid and his pain is still present with any exertion insur will not provide for eliquis we will try warfarin and see how he does Cerebrovas cular accident 360336956 I63.9 no further issues and is asymptomat ic but is now on eliquis due to palpitatio ns and tachycardi a Stable angina 408088813 I20.8 asymptomat ic relates has been using sl ntg which helps with belching but has not required for cp actual relates that he exerts he does get sob and stops doing thatcardio lo states it was ok to increase dose of isosrb to 90mg and i changed the rx to reflect that Type 1 kat betes mellitus 48319917 E10.9 now on freestyle leyla and is doing great with much better control of his sugarshe remains active and last a1c was 7.4have decreased lantus/bas agl to 12 u and even prob lower if he is still down discussed pt the need to keep gluc up and NOT to let gluc go too low it is more important than to worry about it being too high also will cut the dose of humalog down to 5 u instead of 10 for the meals Chronic ob structive pulmonary disease 62538073 J44.9 still getting winded at times but using Breo with pretty good results but insurance wont cover despite PA we tried a letter without help [id number] Sony Peacock, [facility] Internal Medicine [address] [facility],[place] itcharlie Hanna [facility] ON, [place] [address] 01/30/2022 11:22:10 01/30/2022 12:13:21 Paroxysmal atrial fibrillation 607728487 I48.0 here now is controlled and in NSR and is cont to be on amiodarone 200 bid and his pain is still present with any exertion insur will not provide for eliquis we will try warfarin and see how he does Type 1 kat betes mellitus 59048713 E10.9 Given the extreme difficulti es checking his glucose 6+ times a day with numerous sliding scale injections it remains necessary that he continue with the CGM and supplieshi s sugar readings are markely better now and he has been able to adjust his diet in real time and see the response of his levels. now on freestyle leyla and is doing great with much better control of his sugarshe remains active and last a1c was 7.1 was 7.4have decreased lantus/bas agl to 12 u and even prob lower if he is still down discussed pt the need to keep gluc up and NOT to let gluc go too low it is more important than to worry about it being too high also will cut the dose of humalog down to 5 u instead of 10 for the meals Depressive disorder 3651 0750 F32.9 feeling down overall reviewed in detail and will rechk in a few weeks as he doesnt want to hav e a new med now [id number] Sony Peacock, [facility] [address],[place] [address] 05/01/2022 10:20:06 05/01/2022 12:38:03 Paroxysmal atrial fibrillation 422780079 I48.0 here now is controlled and in NSR and is cont to be on amiodarone 200 bid and his pain is still present with any exertion insur will not provide for eliquis we will try warfarin and see how he does Hypertensive disorder 38 820334 I10 stable overall bp is excellent had lost 5 lbs but this is now better no chng in meds will need to watch closely given increase in prob angina and new onset afib Type 1 kat betes mellitus 23027089 E10.9 Given the extreme difficulti es checking his glucose 6+ times a day with numerous sliding scale injections it remains necessary that he continue with the CGM and supplieshi s sugar readings are markely better now and he has been able to adjust his diet in real time and see the response of his levels. now on freestyle leyla and is doing great with much better control of his sugarshe remains active and last a1c was 7.1 was 7.4have decreased lantus/bas agl to 12 u and even prob lower if he is still down discussed pt the need to keep gluc up and NOT to let gluc go too low it is more important than to worry about it being too high also will cut the dose of humalog down to 5 u instead of 10 for the meals Active or passive immunization 229103541 Z23 advised due for shingles- he isn't sure if he will get due to cost Congestive heart failure 20977449 I50.9 followed by cardiologi Depressive disorder 8926 9005 F32.9 feeling down overall relates not interested in treating however.. reviewed in detail and he doesnt want to have a new med now Hyperlipidemia 43097778 E78.5 will be following [id number] Sony Peacock, [facility] [address] [facility],[place] [address] 08/24/2022 11:26:57 08/24/2022 13:49:15 Type 2 diabetes mellitus 96488634 E11.9 Congestive heart failure 83172451 I50.9 followed by cardiologi ruba is still on 60 mg of lasix daily per cardiology Chronic ob structive pulmonary disease 33421337 J44.9 still getting winded at times but using Breo with pretty good results but insurance wont cover despite PA we tried a letter without help Hypertensive disorder 38 186386 I10 stable overall bp is excellent had lost 5 lbs but this is now better no chng in meds will need to watch closely given increase in prob angina and new onset afib Coronary arteriosclerosis 20424427 I25.10 asymptomat ic no cp no exert dyspnea out of proportion to activity relates no presyncope etc as he has the pacer defibrelat es he is frustrated that he gets more winded with exertion Paroxysmal atrial fibrillation 689462749 I48.0 here now is controlled and in NSR and is cont to be on amiodarone 200 bid and his pain is still present with any exertion insur will not provide for eliquis we will try warfarin and see how he does [id number] Sony Peacock, [facility] [address],Clarisse Hanna [facility] [place] [address] 12/21/2022 09:58:00 12/21/2022 10:45:31 Type 2 diabetes mellitus 30320953 E11.9 long discussion with his machine and he will h=get [id number] is 7.1 Hypertensive disorder 38 088315 I10 stable overall bp is excellent had lost 5 lbs but this is now better no waite in meds will need to watch closely given increase in prob angina and new onset afib Anxiety 05846524 F41.9 seems to be controlled but still quite upset re his med insurance he is walking his neighbor's dog and this has helped Asthma 260556318 J45.90 9 stable and no issues doesnt have any Breo samples Depressive disorder 3548 9007 F32.9 Paroxysmal atrial fibrillation 402986852 I48.0 here now is controlled and in NSR and is cont to be on amiodarone 200 bid and his pain is still present with any exertion insur will not provide for eliquis we will try warfarin and see how he does Congestive heart failure 56320983 I50.9 followed by cardiologi struba is still on 60 mg of lasix daily per cardiology Cardiomegaly 2501302 I51 .7 quiet and no evid of chf Stable angina 903888220 I20.8 asymptomat ic relates has been using sl ntg which helps with belching but has not required for cp actual relates that he exerts he does get sob and stops doing thatcardio lo states it was ok to increase dose of isosrb to 90mg and i changed the rx to reflect that Cerebrovas cular accident 157556017 I63.9 no further issues and is asymptomat ic but is now on eliquis due to palpitatio ns and tachycardi a Chronic ob structive pulmonary disease 48758440 J44.9 still getting winded at times but using Breo with pretty good results but insurance wont cover despite PA we tried a letter without help [id number] CORNELIA ABARCA [facility] [address] [facility],[place] [facility] [place] [address] 02/12/2023 09:41:24 02/12/2023 11:26:16 Pre-surgery evaluation 866029403 Z01.818 The patient was seen in the office today for pre-op evaluation . All medical conditions on patient's problem list were addressed and are currently stable, no interventi on needed at this time. Based on history and physical performed, the patient is cleared for surgery. Chronic ob structive pulmonary disease 42883423 J41.0 needs refill [id number] Sony Peacock DO [facility] [address] [facility],[place] [facility] [place] [address] 07/16/2023 14:48:13 07/16/2023 15:44:16 Congestive heart failure 36211289 I50.9 followed by cardiologi sthe is still on 60 mg of lasix daily per cardiology Atrial fibrillation 4943 6004 I48.91 currently stableon amiodarone 200 bid followed by cardiology Coronary a rtery bypass graft operation planned 807820579 Z78.9 waiting for cardiology appt Coronary arteriosclerosis 41484912 I25.10 asymptomat ic no cp no exert dyspnea out of proportion to activity relates no presyncope etc as he has the pacer defibrelat es he is frustrated that he gets more winded with exertion Type 1 kat betes mellitus 67363743 E10.9 relates has not yet gotten his lab has been having occ trouble with sensor falling off Given the extreme difficulti es checking his glucose 6+ times a day with numerous sliding scale injections it remains necessary that he continue with the CGM and supplieshi s sugar readings are markedly better now and he has been able to adjust his diet in real time and see the response of his levels. now on freestyle leyla and is doing great with much better control of his sugarshe remains active and last a1c was 7.1 was 7.4have decreased lantus/bas agl to 12 u and even prob lower if he is still down discussed pt the need to keep gluc up and NOT to let gluc go too low it is more important than to worry about it being too high also will cut the dose of humalog down to 5 u instead of 10 for the meals Hypertensive disorder 38 950415 I10 stable overall bp is excellent had lost 5 lbs but this is now better no ravindra in meds will need to watch closely given increase in prob angina and new onset afib Chronic ob structive pulmonary disease 15843644 J41.0 still getting winded at times but using Breo with pretty good results but insurance wont cover despite PA we tried a letter without help Depressive disorder 3545 9007 F32.9 has not tolerated escitalopr am , mirtazapin e unhelpfulw e will have him try trazodone 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 [id number] Sony Peacock, [facility] [address] [address],Clarisse Hanna [facility] [place] [address] 09/13/2023 10:59:21 09/13/2023 11:54:31 Congestive heart failure 21811809 I50.9 followed by cardiologi ruba is still on 60 mg of lasix daily per cardiology Asthma 629582571 J45.90 9 stable and no issues Chronic ob structive pulmonary disease 32976892 J41.0 still doing about the same still getting winded at times but using Breo with pretty good results but insurance wont cover despite PA we tried a letter without help Coronary arteriosclerosis 16133689 I25.10 asymptomat ic no cp no exert dyspnea out of proportion to activity relates no presyncope etc as he has the pacer defibrelat es he is frustrated that he gets more winded with exertion Hyperlipidemia 70577823 E78.5 will be following Hypertensive disorder 38 273788 I10 stable overall bp is excellent had lost 5 lbs but this is now better no ravindra in meds will need to watch closely given increase in prob angina and new onset afib Type 1 kat betes mellitus 17472961 E10.9 a1c is 7.6 now on lantus and new new humalog switch has been having occ trouble with sensor falling off Given the extreme difficulti es checking his glucose 6+ times a day with numerous sliding scale injections it remains necessary that he continue with the CGM and supplieshi s sugar readings are markedly better now and he has been able to adjust his diet in real time and see the response of his levels. now on freestyle leyla and is doing great with much better control of his sugarshe remains active and last a1c was 7.1 was 7.4have decreased lantus/bas agl to 12 u and even prob lower if he is still down discussed pt the need to keep gluc up and NOT to let gluc go too low it is more important than to worry about it being too high also will cut the dose of humalog down to 5 u instead of 10 for the meals Recurrent falls 08272699 2 R29.6 not able to get up at times feeling weak and unsteady at times [id number] CORNELIA ABARCA [facility] [address] [facility], [employer] [place] [address] 12/14/2023 14:45:55 12/14/2023 16:05:18 Chronic obstructive pulmonary disease 23439141 J41.0 needs refill Abdominal aortic aneurysm 645569909 I71.40 recheck in a few month to see if the size has increased [id number] Sony Peacock DO [facility] [address] [facility],[place] [address] 01/14/2024 13:35:31 01/14/2024 14:39:23 Adult health examination 578913514 Z00.00 will start trintellix in a couple weeks Screening for cardiovascular system disease 006708145 Z13.6 will change to xarelto and see him in a month Screening for malignant neoplasm of colon 396311353 Z12.11 Type 2 kat betes mellitus 79271437 E11.9 long discussion with his machine and he will h=get [id number] is 7.1 Drug-induc ed hypokalemia 759742131 E87.6 [id number] Sony Peacock DO [facility] [address] [facility],[place] [address] 02/18/2024 11:13:25 02/18/2024 13:55:38 Asthma 590626051 J45.909 stable and no issues Depression screening 171 169824 Z13.31 neg much better now Type 2 kat betes mellitus 29182132 E11.9 long discussion with his machine and he will h=get [id number] is 7.1 Atrial fibrillation 4943 6004 I48.91 currently stableon amiodarone 200 bid followed by cardiology xarelto much better due to side effects from eliquis Type 1 kat betes mellitus 22694823 E10.9 a1c is 7.6 now on lantus and new new humalog switch has been having occ trouble with sensor falling off Given the extreme difficulti es checking his glucose 6+ times a day with numerous sliding scale injections it remains necessary that he continue with the CGM and supplieshi s sugar readings are markedly better now and he has been able to adjust his diet in real time and see the response of his levels. now on freestyle leyla and is doing great with much better control of his sugarshe remains active and last a1c was 7.1 was 7.4have decreased lantus/bas agl to 12 u and even prob lower if he is still down discussed pt the need to keep gluc up and NOT to let gluc go too low it is more important than to worry about it being too high also will cut the dose of humalog down to 5 u instead of 10 for the meals Cerebrovas cular accident 744843916 I63.9 no further issues and is asymptomat ic but is now on xarelto due to palpitatio ns and tachycardi a [id number] Sony Peacock DO [facility] [address] [facility],[place] [address] 02/23/2024 16:08:47 02/23/2024 16:51:33 Chronic obstructive pulmonary disease 87820165 J41.0 still doing about the same still getting winded at times but using Breo with pretty good results but insurance wont cover despite PA we tried a letter without help Inflammato ry hyperkeratotic dermatosis 12543100 L85.8 excision well alex and sent home with wound care and extra bandages etc [id number] CORNELIA ABARCA [facility] [address] [facility],[place] [address] 04/24/2024 14:48:06 04/24/2024 18:02:27 Depression screening 128711232 Z13.31 discussed options, declines interventi on at this time Type 2 kat betes mellitus 82403396 E11.9 needs refill Type 1 kat betes mellitus 65118785 E10.[address] with instructio n process will call if any further confusion [id number] CORNELIA ABARCA [facility] [address] [facility] [address],[place] [address] 07/04/2024 14:49:49 07/04/2024 15:52:52 Insomnia 504685009 G47.09 continue melatonin or APAP PM PRN or xanax for sleepother meds haven't worked Suicidal thoughts 215917 6 R45.851 stable today per patient Nausea and vomiting 1693 2000 R11.2 will start on zofran Panic disorder 807486532 F41.0 start on hydroxyzin e for anxiety [id number] Sony Peacock DO [facility] [address] [facility] [address],[place] [address] 11/06/2024 14:33:48 11/06/2024 15:22:15 Osteoarthritis of joint of right shoulder region 6902129923 48887 M19.011 tolerated monisha inj [id number] CORNELIA ABARCA [facility] [address] [facility] [address],[place] [address] 01/09/2025 11:30:57 01/09/2025 12:03:18 Dyspnea on exertion 26576723 R06.09 Chronic ob structive pulmonary disease 88361921 J41.0 increase to 200 mcg-62.5 mcg Type 2 kat betes mellitus 94961702 E11.9 will set up with routine testing Health Concerns Section Related Observation LastModified by Organization Detai ls LastModified Time None Recorded Concern Status LastModified by Organization Details LastModified Time None Recorded Advance Directives Directive None Recorded Payers Encounter Date Sequence Insurance Name Policy Number Policy Baca Covered Member ID Baca Member ID Guarantor Name 02/23/2024 2 [place] [id number] Pedrito Headley [id number] Chi Headley 02/23/2024 1 [place] [employer] Chi Headley [id number] Chi Headley 04/24/2024 2 [place] [id number] Pedrito Rausch Headley Sr [id number] Chi S Headley 04/24/2024 1 [place] Chi S Headley [id number] Chi S Headley 07/04/2024 2 [place] [id number] Pedrito S Headley Sr [id number] Chi S Headley 07/04/2024 1 [place] Chi S Headley [id number] Chi S Headley 11/06/2024 2 [place] [id number] Pedrito S Headley Sr [id number] Chi S Headley 11/06/2024 1 [place] Chi S Headley [id number] Chi S Headley 01/09/2025 2 [place] [id number] Pedrito S Headley Sr [id number] Chi S Headley 01/09/2025 1 [place] [place] Chi S Headley [id number] Chi S Headley Notes Date Note Type Note Provider Name a nd Address Organization Details Recorded Time 02/23/2024 text/html here for hyperkeratotic lesion removal Sony Peacock, DO [address] [facility], [place], [address], [facility] 02/25/2024 06:04:23 04/24/2024 text/html f/u patient doing gooddoes admit to being more depressed than usual, declined to go into it further past a lot of personal issues declines medication at this time, has tried a few meds with MB but he didn't like how they made him feel had a colonoscopy and endoscopy with [facility] a pre-cancerous polyp though he reports GI told him he will not be getting another colonoscopy in his lifetimedoes have f/u with them to check on his symptoms on WednesdayGI symptoms have seemed to lessen after the scopes does admit to having bilateral leg numbness occasionally and usually provoked by sitting for long periods of time, does have a hx of fusion of his lumbar spine at three levelsmost likely related to lumbar degenerative changes with compression on L4 to L5 and L5 to [id number] reports he thinks it is his circulation though he does not have a symptoms otherwise suggestive of circulation issues with his legs and he sees his credit reference clerk regularly staying active needs to change to Freestyle Leyla 3 his sugar has been down-trending, has been using less humalog around to 6 to 7 units a day, monitor closely on his freestyle CORNELIA ABARCA [address] [place], [address], [facility] 04/24/2024 14:58:14 07/04/2024 text/html hospital f.u the patient was admitted under a section 12 due to comments about SIwas admitted to [place] then transferred to a respite in [place], [place] the patient was also found to have pneumonia, start on abx and pred which was successful the patient has concerns today about insomnia notes that he is getting help with retirement and has family around her The patient denies little pleasure in activities they find enjoyable, feeling depressed, difficulties sleeping, feeling tired or having little energy, change in appetite, feeling guilty, overwhelmed or unmotivated. The patient denies suicidal ideation, thoughts of hurting themselves or others. Their mood is appropriate, they show good judgement and clear understanding of the conversation. They are orientated to time, place and person. They are not expressing any concerning thoughts or actions that would need further investigation and treatment for mental health. working with the [employer] and a social insurance specialist for [employer] filling out the paperwork for the housing CORNELIA ABARCA [address] [facility], [place], [address], [facility] 07/04/2024 15:20:50 11/06/2024 text/html here for monisha in j and has been very sore Sony Peacock, [address] [facility], [place], [address], [facility] 11/06/2024 15:16:24 01/09/2025 text/html c/o breathing issues recently saw cardiology the last 3 to 4 mosnoticed breathing issue began afterwardsbut his exam and echo were normal according to patienthis pacemaker is working well, battery is still good patient has COPD, on trelegy, no rescues inhalerwill increase his trelegy 200 mcg-62.5 mcg- 25 mcg recommended f/u PFT and CXR to r/o acute process vs progression the patient will also have his iron checked to see if he is anemic which can cause his sob the patient agreed to thisalso needs routine a1c done patient agrees to this plangiven write up of the plan for patient to have CORNELIA ABARCA [address] [facility], [place], [address], [place] [facility] 01/09/2025 12:03:17
--- OUTSIDE RECORDS SUMMARY | 2025-01-09 16:50 | XMS_ITS | Continuity of Care Document ---
Author Organization [facility], [facility] Address [address] [place] [address] [place] [address] Assessment No assessment recorded. Plan of Treatment Reminders Order Date Submit Date Provider Last Modified By Organization Details Last Modified Time Details Appointments FOLLOW UP 2024 11:45A CORNELIA BRANHAM Not available Not available Not available Lab CMP, serum or plasma 2024 025 [facility], [address] [place] [address], [id number], 01/09/2025 12:06:26 hemoglobi n A1c, QN, blood 2024 025 [facility], [address] [place] [address], [place], [id number], 01/09/2025 12:06:26 iron + TIBC + ferritin, serum 2024 025 [facility], [address] [place] [address], [id number], 01/09/2025 12:06:26 CBC w/ auto diff 2024 025 [facility], [address] [place] [address], [id number], 01/09/2025 12:06:26 Referral None recorded. Procedures None recorded. Surgeries None recorded. Imaging PFT, complete 2024 025 [facility], [address] [place], [address], 01/09/2025 11:57:22 XR, chest, 2 view 2024 025 [facility], [address] [place], [address], 01/09/2025 11:57:22 Medication Orders Trelegy Ellipta 200 mcg-62.5 mcg-25 mcg powder for inhalatio n 2024 025 [id number], [address], [place], [place], [id number], 01/09/2025 11:50:40 Patient TargetsNo targets recorded. Patient InstructionsNo instructions recorded. Reason for Referral None Reported. Problems Name Problem SNOMED Code Status Onset Date Resolution Date Notes Provider Name and Address Organization Details Recorded Time Paroxysm al atrial fibrilla tion 759739287 Active 2020 Not Available [facility] 3 18:27:48 Depressi ve disorder 53600154 Active 2021 Not Available [facility] 3 18:27:48 Congesti ve heart failure 85916492 Active 2021 Not Available [facility] 3 18:27:49 Pneumoni a 445835006 Active 2021 Not Available [facility] 3 18:27:48 Degenera tion of lumbar interver tebral disc 39093307 Active 2021 Not Available [facility] 3 18:27:48 Asthma 775364268 Active 2022 Not Available [facility] 3 18:27:48 Drug-ind uced hypokale juancarlos 955221828 Active 2022 Not Available [facility] 3 18:27:48 Pneumoni tis 575331018 Active 2022 Not Available [facility] 3 18:27:48 Cough 44873605 Active 2022 Sony Peacock, [address] [place], [address], [facility] 3 14:11:35 Atrial fibrilla tion 47542151 Active 2022 CORNELIA ABARCA [address] [place] [address], [address], [facility] 3 09:29:09 Niacin deficien cy 617476165 Active 2022 Sony Peacock, DO [address] [place] [address], [address], [facility] 3 15:29:58 Recurren t falls 001576447 Active 2022 Sony Peacock DO [address] [place] [address], [address], [facility] 3 11:19:24 Type 2 diabetes mellitus 91416232 Active 2022 CORNELIA ABARCA [address] [place] [address], [address], [facility] 3 14:14:50 Abdomina l aortic aneurysm 732963202 Active 2023 CORNELIA ABARCA [address] [place] [address], [address], [facility] 4 15:11:58 Liver enzymes level above referenc e range 243624945 Active 2023 Sony Peacock DO [address] [place] [address], [address], [facility] 4 22:10:50 Inflamma tory hyperker atotic dermatos is 11595240 Active 2023 Sony Peacock DO [address] [place] [address], [address], [facility] 4 16:52:56 Suicidal thoughts 7396308 Active 2023 CORNELIA ABARCA [address] [place] [address], [address], [facility] 4 15:10:37 Insomnia 792415369 Active 2023 CORNELIA ABARCA [address] [place], [address], [facility] 4 15:10:51 Nausea and vomiting 00645338 Active 2023 CORNELIA ABARCA [address] [place], [address], [facility] 4 15:18:59 Panic disorder 421254894 Active 2023 CORNELIA ABARCA [address] [place], [address], [facility] 4 15:19:38 Osteoart hritis of right hip joint 71365376538 9107 Active 2023 Sony Peacock DO [address] [place] [address], [address], [facility] 4 16:17:33 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 13612460057 9100 Active 2024 Sony Peacock DO [address] [place] [address], [address], [facility] 5 15:13:15 Dyspnea on exertion 63765670 Active 2024 CORNELIA ABARCA [address] [place], [address], [facility] 5 11:47:32 Type 1 diabetes mellitus 25041125 Active 2017 Not Available [facility] 3 18:27:49 Hyperlip idemia 55709169 Active 2017 Not Available [facility] 3 18:27:49 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 Active 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 Not Available [facility] 3 18:27:48 Transien t cerebral ischemia 149766844 Active 2017, 08/2016 Not Available [facility] 3 18:27:48 Coronary arterios clerosis 36094572 Active 2017 Not Available [facility] 3 18:27:49 Coronary artery bypass graft operatio n planned 266618235 Active 2017 x3 Not Available [facility] 3 18:27:49 Hyperten sive disorder 72595757 Active 2017 Not Available [facility] 3 18:27:48 Osteoart hritis 955862382 Active 2017 neck, bilateral knees Not Available [facility] 3 18:27:49 Anxiety 38287100 Active 2017 Not Available [facility] 3 18:27:49 Stable angina 672550287 Active 2017 Not Available [facility] 3 18:27:48 Gastroes ophageal reflux disease 803076636 Active 2017 Not Available [facility] 3 18:27:48 Chronic obstruct melva pulmonar y disease 25750087 Active 2017 Not Available [facility] 3 18:27:48 May' s esophagu s 988478382 Active 2017 Not Available [facility] 3 18:27:48 History of tobacco use 38579364498 03 Active 2017 Not Available [facility] 3 18:27:48 Cardiome kate 2047620 Active 2017 mild Not Available [facility] 3 18:27:49 Onychomy cosis 383857947 Active 2017 Not Available [facility] 3 18:27:49 Carotid artery stenosis 25066842 Active 2017 Not Available [facility] 3 18:27:49 Cramp 55741376 Active 2017 Not Available [facility] 3 18:27:49 Orthosta tic hypotens ion 25071301 Active 2017 Not Available [facility] 3 18:27:48 Problem Notes None recorded. Procedures Surgical History Date Name Laterality Status Provider Name and Address Organization Details Recorded Time 025 Corticosteroid Injection completed Sony Peacock DO [address] [place], [address], [facility] 11/06/2024 15:12:05 024 Excision and closure completed Sony EstradaFran Peacock DO [address] [place], [address], [facility] 02/23/2024 16:47:58 021 Removal of Foreign Body completed CORNELIA ABARCA [address] [place], [address], [facility] 01/24/2021 14:18:21 Imaging Results None recorded. Procedure Notes None recorded. Medical Equipment None Reported. Allergies Allergen ID Allergen Name Allergen Category Reaction Reaction Severity Criticality Documentation Date Start Date Code Code System Note Provider Name and Address Organization Details Recorded Time 1963 Iodinated contrast media (substanc e) medicatio n Not available Not available Not available 04/18/2018 61354 2003 SNOMED Sherine Daniels [facility] 8 08:46:56 Medications Name Sig Start Date [...] Available tizanidine 4 mg tablet 1 tab [id number] prn. do not drink or drive with [...] Available Not Available Not Available Dexcom G6 Prepress Technician USE DIRECTED 01/01 completed Not Available Not Available Not Available Dexcom G6 Transmitter device USE DIRECTED TO MONITOR BLOOD GLUCOSE LEVELS 8-10 TIMES A DAY. 01/01 completed Not Available Not Available Not Available Lyumjev KwikPen U-100 Insulin 100 unit/mL subcutaneou s ADMINISTE R 10 UNITS UNDER THE SKIN THREE TIMES DAILY NEEDED active Not Available Not Available No t Available Christoslecharlie Ellipta 200 mcg-62.5 mcg-25 mcg powder for inhalation Inhale 1 puff every day by inhalatio n route as directed for 30 days. 2024 active Not Available Not Available Not Avai barney Crystal COVID-19 Ag Self Test kit TEST DIRECTED TODAY 05/01 completed Not Available Not Available Not Available Vitals Date Recorded Body height Body mass index (BMI) Body weight Heart rate Oxygen saturation Oxygen saturation in Arterial blood by Pulse oximetry Systolic blood pressure Diastolic blood pressure Provider Name and Address Organization Details Last Updated DateTime 5 170.18 cm 21.7 kg/m2 13763.6 2 g 64 /min 96 % 96 % 120 mm[Hg] 74 mm[Hg] Lis Chairez [facility] 5 11:39:43 Social History Question Answer Notes LastModified by Organizat ion Details LastModified Time Tobacco Smoking Status Former Smoker Sherine gonzales [facility] 04/18/2018 11:44:09 What Was [...] mcg/0.3 mL dose 1 completed Not Available [facility] 05/26/2023 18:27:49 COVID-19, mRNA, LNP-S, PF, 30 mcg/0.3 mL dose 2 completed Not Available [facility] 05/26/2023 18:27:49 influenza, unspecified formulation 2 completed Not Available [facility] 05/26/2023 18:27:49 influenza, unspecified formulation 4 completed Lis gonzales [facility] 06/09/2024 08:19:48 Influenza, split virus, quadrivalent, preservative 9 completed Not Available [facility] 05/26/2023 18:27:49 Tdap 1 completed Not Available [facility] 05/26/2023 18:27:49 COVID-19, mRNA, LNP-S, PF, 30 mcg/0.3 mL dose 1 completed Not Available [facility] 05/26/2023 18:27:49 COVID-19, mRNA, LNP-S, PF, 30 mcg/0.3 mL dose 1 completed Not Available [facility] 05/26/2023 18:27:49 pneumococcal polysaccharide PPV23 8 completed Not Available [facility] 05/26/2023 18:27:49 Influenza, split virus, quadrivalent, preservative 8 completed Not Available [facility] 05/26/2023 18:27:49 Past Encounters Encounter ID Performer Location Encounter Start Date Encounter Closed Date Diagnosis/Indication Diagnosis SNOMED-CT Code Diagnosis ICD10 Code Diagnosis Note [id number] CORNELIA ABARCA [facility] [address],[place] [address] 01/09/2025 11:30:57 01/09/2025 12:03:18 Dyspnea on exertion 80173534 R06.09 Chronic ob structive pulmonary disease 27305359 J41.0 increase to 200 mcg-62.5 mcg Type 2 kat betes mellitus 52579281 E11.9 will set up with routine testing Health Concerns Section Related Observation LastModified by Organization Detai ls LastModified Time None Recorded Concern Status LastModified by Organization Details LastModified Time None Recorded Payers Encounter Date Sequence Insurance Name Policy Number Policy Baca Covered Member ID Baca Member ID Guarantor Name 01/09/2025 2 [place] [id number] Pedrito Headley Sr [id number] Chi Headley 01/09/2025 1 [place] [employer] Chi Headley [id number] Chi Headley Notes Date Note Type Note Provider Name a nd Address Organization Details Recorded Time 01/09/2025 text/html c/o breathing issues recently saw [...] plan for patient to have CORNELIA ABARCA [address] [place] [address], [address], [place] [facility] 01/09/2025 12:03:17
[2025-01-09 18:22] LABS: MANUAL DIFF FLAG NO
[2025-01-09 18:31] LABS: Basophils Absolute Auto 0.1 X10*3/uL (0.0-0.2); Basophils Percent Auto 0.7 % (0-2); Eosinophils Absolute Auto 0.2 X10*3/uL (0.0-0.4); Eosinophils Percent Auto 1.9 % (0-4); Hematocrit 37.9 % (42.0-52.0); Hemoglobin 13.1 g/dl (14.0-18.0); Imm Gran Abs Auto 0.08 X10*3/uL (0.00-0.03); Imm Gran Pct Auto 0.9 % (0.0-0.4); Lymphocytes Absolute Auto 1.5 X10*3/uL (1.2-4.9); Lymphocytes Percent Auto 17.6 % (20-40); Mean Corpuscular HGB Conc 34.6 g/dl (31.0-36.0); Mean Corpuscular Hemoglobin 33.3 pg (27.0-33.0); Mean Corpuscular Volume 96.4 fL (80.0-98.0); Mean Platelet Volume 9.8 fL (9.4-12.4); Monocytes Percent Auto 11.4 % (2-11); Neutrophils Absolute Auto 5.8 x10*3/uL (2.0-8.3); Neutrophils Percent Auto 67.5 % (45-73); Platelet Count 205 X10*3/uL (160-400); Red Blood Count 3.93 X10*6/uL (4.60-5.80); Red Cell Distribution Width 13.3 % (11.0-16.0); White Blood Count 8.6 X10*3/uL (4.8-10.8)
[2025-01-09 18:44] LABS: Alanine Aminotransferase 70 U/L (0-40); Albumin Level 4.1 g/dL (3.5-5.0); Alkaline Phosphatase 70 U/L (39-117); Anion Gap 12 (12-20); Aspartate Amino Transferase 56 U/L (5-37); Bilirubin Total 0.7 mg/dL (0.0-1.0); Blood Urea Nitrogen 21 mg/dL (9-16); Calcium 9.1 mg/dL (8.4-10.2); Carbon Dioxide 28 mmol/L (22-29); Chloride 105 mmol/L (96-108); Estimated Glomerular Filt Rate > 60; Glucose Random 175 mg/dL (60-115); Iron 99 mcg/dL (45-160); Percent Iron Saturation 36 % (15-50); Sodium 141 mmol/L (135-145); Total Iron Binding Capacity 275 mcg/dL (228-428); Total Protein 6.7 g/dL (6.5-8.0); Unsaturated Iron Binding 176 ug/dL
[2025-01-10 07:11] LABS: Estimated Average Glucose 169 mg/dL; Hemoglobin A1C 205.3444 umol/L; Hemoglobin A1c % 7.5 % (<6.0); Total Hemoglobin (HGBA1C) 3519.4273 umol/L
== END 2025-01-09 13:42 | disposition home or self-care (01) ==
LOC: HO.MANLDS 13:41
PROVIDERS: Visit Provider Physician Assistant
DX: R06.09 Other forms of dyspnea (principal); E11.9 Type 2 diabetes mellitus without complications
CPT/HCPCS: 36415; 80053; 83036; 83540; 85025

== ENCOUNTER 2025-01-10 14:17 | Outpatient (REF) | payer MEDICARE, SELFPAY ==
--- OUTSIDE RECORDS SUMMARY | 2025-01-10 17:02 | XMS_ITS | Continuity of Care Document ---
Author Organization [facility], [facility] Address [address] [facility] [place] [address] Assessment No assessment recorded. Plan of Treatment Reminders Order Date Submit Date Provider Last Modified By Organization Details Last Modified Time Details Appointments None recorded. Lab CMP, serum or plasma 2024 025 [facility], [address] [place] [address], [id number], 5 12:40:39 hemoglobin A1c, QN, blood 2024 025 [facility], [address] [address], [place], [address], 5 12:40:39 iron + TIBC + ferritin, serum 2024 025 [facility], [address] [place] [address], [address], 5 12:40:39 CBC w/ auto diff 2024 025 [facility], [address] [place] [address], [address], 5 12:40:39 Referral None recorded. Procedures None recorded. Surgeries None recorded. Imaging PFT, complete 2024 025 [email or web address] [facility], [address], [place], [address], 5 10:53:42 XR, chest, 2 view 2024 025 [email or web address] [facility], [address] [facility] [address], [place], [address], 5 10:53:43 Medication Orders Trelegy Ellipta 200 mcg-62.5 mcg-25 mcg powder for inhalation 2024 025 [id number], [address] [facility], [place], [place], [id number], 5 11:50:40 Patient TargetsNo targets recorded. Patient InstructionsNo instructions recorded. Reason for Referral None Reported. Problems Name Problem SNOMED Code Status Onset Date Resolution Date Notes Provider Name and Address Organization Details Recorded Time Paroxysm al atrial fibrilla tion 440861667 Active 2020 Not Available [facility] 3 18:27:48 Depressi ve disorder 49148664 Active 2021 Not Available [facility] 3 18:27:48 Congesti ve heart failure 16519111 Active 2021 Not Available [facility] 3 18:27:49 Pneumoni a 681445340 Active 2021 Not Available [facility] 3 18:27:48 Degenera tion of lumbar interver tebral disc 34741697 Active 2021 Not Available [facility] 3 18:27:48 Asthma 041605576 Active 2022 Not Available [facility] 3 18:27:48 Drug-ind uced hypokale juancarlos 046418112 Active 2022 Not Available [facility] 3 18:27:48 Pneumoni tis 061707180 Active 2022 Not Available [facility] 3 18:27:48 Cough 25748959 Active 2022 Sony Peacock, DO [address] [place], [address], [facility] 3 14:11:35 Atrial fibrilla tion 37579263 Active 2022 CORNELIA ABARCA [address] [place], [address], [facility] 3 09:29:09 Niacin deficien cy 829520022 Active 2022 Sony Peacock, DO [address] [place] [address], [address], [facility] 3 15:29:58 Recurren t falls 042618888 Active 2022 Sony Peacock, DO [address] [place] [address], [address], [facility] 3 11:19:24 Type 2 diabetes mellitus 00199513 Active 2022 CORNELIA ABARCA [address] [place] [address], [address], [facility] 3 14:14:50 Abdomina l aortic aneurysm 089595295 Active 2023 CORNELIA ABARCA [address] [place] [address], [address], [facility] 4 15:11:58 Liver enzymes level above referenc e range 249634888 Active 2023 Sony Peacock, DO [address] [place] [address], [address], [facility] 4 22:10:50 Inflamma tory hyperker atotic dermatos is 50809267 Active 2023 Sony Peacock, DO [address] [place] [address], [address], [facility] 4 16:52:56 Suicidal thoughts 9614452 Active 2023 CORNELIA ABARCA [address] [place] [address], [address], [facility] 4 15:10:37 Insomnia 518667252 Active 2023 CORNELIA ABARCA [address] [place] [address], [address], [facility] 4 15:10:51 Nausea and vomiting 22882945 Active 2023 CORNELIA ABARCA [address] [place] [address], [address], [facility] 4 15:18:59 Panic disorder 882915517 Active 2023 CORNELIA ABARCA [address] [place] [address], [address], [facility] 4 15:19:38 Osteoart hritis of right hip joint 53825551001 9107 Active 2023 Sony Peacock DO [address] [place] [address], [address], [facility] 4 16:17:33 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 23298162291 9100 Active 2024 Sony Peacock DO [address] [place] [address], [address], [facility] 5 15:13:15 Dyspnea on exertion 93213286 Active 2024 CORNELIA ABARCA [address] [place] [address], [address], [facility] 5 11:47:32 Type 1 diabetes mellitus 90229998 Active 2017 Not Available [facility] 3 18:27:49 Hyperlip idemia 65169870 Active 2017 Not Available [facility] 3 18:27:49 Cerebrov ascular accident 003236560 Active 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 Not Available [facility] 3 18:27:48 Transien t cerebral ischemia 753486263 Active 2017, 08/2016 Not Available [facility] 3 18:27:48 Coronary arterios clerosis 88767208 Active 2017 Not Available [facility] 3 18:27:49 Coronary artery bypass graft operatio n planned 433201132 Active 2017 x3 Not Available [facility] 3 18:27:49 Hyperten sive disorder 75040048 Active 2017 Not Available [facility] 3 18:27:48 Osteoart hritis 514678176 Active 2017 neck, bilateral knees Not Available [facility] 3 18:27:49 Anxiety 19927569 Active 2017 Not Available [facility] 3 18:27:49 Stable angina 020056030 Active 2017 Not Available [facility] 3 18:27:48 Gastroes ophageal reflux disease 074642781 Active 2017 Not Available [facility] 3 18:27:48 Chronic obstruct melva pulmonar y disease 59091052 Active 2017 Not Available [facility] 3 18:27:48 May' s esophagu s 629443441 Active 2017 Not Available [facility] 3 18:27:48 History of tobacco use 92393630399 03 Active 2017 Not Available [facility] 3 18:27:48 Cardiome kate 5595085 Active 2017 mild Not Available [facility] 3 18:27:49 Onychomy cosis 854480134 Active 2017 Not Available [facility] 3 18:27:49 Carotid artery stenosis 48445331 Active 2017 Not Available [facility] 3 18:27:49 Cramp 28997005 Active 2017 Not Available [facility] 3 18:27:49 Orthosta tic hypotens ion 30840425 Active 2017 Not Available [facility] 3 18:27:48 Problem Notes None recorded. Procedures Surgical History Date Name Laterality Status Provider Name and Address Organization Details Recorded Time 025 Corticosteroid Injection completed Sony Peacock, DO [address] [facility], [place], [address], [facility] 11/06/2024 15:12:05 05/29/2 024 Excision and closure completed Sony Peacock DO [address] [place], [address], [facility] 02/23/2024 16:47:58 021 Removal of Foreign Body completed CORNELIA ABARCA [address] [place], [address], [facility] 01/24/2021 14:18:21 Imaging Results None recorded. Procedure Notes None recorded. Medical Equipment None Reported. Allergies Allergen ID Allergen Name Allergen Category Reaction Reaction Severity Criticality Documentation Date Start Date Code Code System Note Provider Name and Address Organization Details Recorded Time 1962 Iodinated contrast media (substanc e) medicatio n Not available Not available Not available 04/18/2018 9[address]69 [address] [facility] 8 08:46:56 Medications Name Sig Start Date Stop Date Status Note LastModified by Organization Details LastModified Time Prescriptio n - Change active Not Available Not Available N ot Available cyclobenzap rine 10 mg tablet TAKE 1 TABLET BY MOUTH THREE TIMES A DAY NEEDED 11/19 completed Not Available Not Available Not Available amoxicillin 500 mg capsule 01/10 completed Not Available Not Available Not Available [...] Available tizanidine 4 mg tablet 1 tab [id number] prn. do not drink or drive with [...] TAKE 1 TABLET BY MOUTH AT BEDTIME 06/29/ 2020 05/06 /2022 completed Not Available Not Available Not Available [...] Available Not Available Not Available Dexcom G6 Meal Temperer USE DIRECTED 01/01 completed Not Available Not [...] 2024 active Not Available Not Available Not Yahaira Crystal COVID-19 Ag Self Test kit TEST DIRECTED TODAY 05/01 completed Not Available Not Available Not Available Vitals Date Recorded Body height Body mass index (BMI) Body weight Heart rate Oxygen saturation Oxygen saturation in Arterial blood by Pulse oximetry Systolic blood pressure Diastolic blood pressure Provider Name and Address Organization Details Last Updated DateTime 5 170.18 cm 21.7 kg/m2 52259.6 2 g 64 /min 96 % 96 % 120 mm[Hg] 74 mm[Hg] Lis Chairez [facility] 5 11:39:43 Social History Question Answer Notes LastModified by Organizat ion Details LastModified Time Tobacco Smoking Status Former Smoker Sherine gonzales [facility] 04/18/2018 11:44:09 What Was The [...] mcg/0.3 mL dose 1 completed Not Available [facility] 05/26/2023 18:27:49 COVID-19, mRNA, LNP-S, PF, 30 mcg/0.3 mL dose 2 completed Not Available [facility] 05/26/2023 18:27:49 influenza, unspecified formulation 2 completed Not Available [facility] 05/26/2023 18:27:49 influenza, unspecified formulation 4 completed Lis gonzales [facility] 06/09/2024 08:19:48 Influenza, split virus, quadrivalent, preservative 9 completed Not Available [facility] 05/26/2023 18:27:49 Tdap 1 completed Not Available [facility] 05/26/2023 18:27:49 COVID-19, mRNA, LNP-S, PF, 30 mcg/0.3 mL dose 1 completed Not Available [facility] 05/26/2023 18:27:49 COVID-19, mRNA, LNP-S, PF, 30 mcg/0.3 mL dose 1 completed Not Available [facility] 05/26/2023 18:27:49 pneumococcal polysaccharide PPV23 8 completed Not Available [facility] 05/26/2023 18:27:49 Influenza, split virus, quadrivalent, preservative 8 completed Not Available [facility] 05/26/2023 18:27:49 Past Encounters Encounter ID Performer Location Encounter Start Date Encounter Closed Date Diagnosis/Indication Diagnosis SNOMED-CT Code Diagnosis ICD10 Code Diagnosis Note [id number] CORNELIA ABARCA [facility] [address] [facility],[place] [address] 01/09/2025 11:30:57 01/10/2025 10:53:42 Dyspnea on exertion 85327492 R06.09 Chronic ob structive pulmonary disease 49843407 J41.0 increase to 200 mcg-62.5 mcg Type 2 kat betes mellitus 49593320 E11.9 will set up with routine testing Health Concerns Section Related Observation LastModified by Organization Detai ls LastModified Time None Recorded Concern Status LastModified by Organization Details LastModified Time None Recorded Payers Encounter Date Sequence Insurance Name Policy Number Policy Baca Covered Member ID Baca Member ID Guarantor Name 01/09/2025 2 [place] [id number] Pedrito Headley Sr [id number] Chi Headley 01/09/2025 1 [place] [employer] Chi Headley [id number] Chi Headley Notes Date Note Type [...] plan for patient to have CORNELIA ABARCA [address] [place] [address], [place], [address], [facility] 01/09/2025 12:03:17
--- OUTSIDE RECORDS SUMMARY | 2025-01-10 17:02 | XMS_ITS | Data Portability ---
Author Organization [facility] Address [address] [place] [address] Assessment Encounter Date Assessment Date Assessment LastModified by Organization Details LastModified Time 11/06/2024 11/06/2024 shingles/ pneum vax [email or web address] Not available 11/01/2024 14:10:39 Plan of Treatment Reminders Order Date Submit Date Provider Last Modified By Organization Details Last Modified Time Details Appointments None recorded. Lab CMP, serum or plasma 2024 025 [facility], [address] [place] [address], [address], 5 12:40:39 hemoglobin A1c, QN, blood 2024 025 [facility], [address] [place] [address], [address], 5 12:40:39 iron + TIBC + ferritin, serum 2024 025 [facility], [address] [place] [address], [address], 5 12:40:39 CBC w/ auto diff 2024 025 [facility], [address] [place] [address], [address], 5 12:40:39 Referral None recorded. Procedures None recorded. Surgeries None recorded. Imaging PFT, complete 2024 025 [email or web address] [facility], [address] [place], [address], 5 10:53:42 XR, chest, 2 view 2024 025 [email or web address] [facility], [address] [place], [address], 5 10:53:43 Medication Orders Trelegy Ellipta 200 mcg-62.5 mcg-25 mcg powder for inhalation 2024 025 [id number], [address], [place], [id number], 5 11:50:40 hydroxyzine HCl 25 mg tablet 2023 024 [id number], [address], [place], [id number], 4 15:24:56 ondansetron 8 mg disintegrat ing tablet 2023 025 [id number], [address], [place], [id number], 5 11:50:46 Lyumjev KwikPen U-100 Insulin 100 unit/mL subcutaneou s 2023 024 [facility][id number], [address], [place], [id number], 4 14:58:00 Patient TargetsNo targets recorded. Patient Instructions Encounter Date Encounter Id Patient Instructions Last Modified By Organization Details Last Modified Time 02/23/2024 [id number] pulse oximetry* Not available 02/23/2024 16:53:38 chronic obstructive pulmonary disease (COPD): care instructions Not available 02/23/2024 16:53:36 learning about copd and how to prevent lung infections Not available 02/23/2024 16:53:36 Reason for Referral None Reported. Results Created Date Observation Date Name Description Value Unit Range Abnormal Flag Note LastModifiedBy Organization Detail LastModifiedTime 02/23/2002/23/2024 pulse oxime try* Result 98 Not Available [facility] [address] [facility] [address], [place], [address], 02/22/2024 16:31:58 Result Notes None recorded. Problems Name Problem SNOMED Code Status Onset Date Resolution Date Notes Provider Name and Address Organization Details Recorded Time Paroxysm al atrial fibrilla tion 102843624 Active 2020 Not Available [facility] 3 18:27:48 Depressi ve disorder 04792680 Active 2021 Not Available [facility] 3 18:27:48 Congesti ve heart failure 35374413 Active 2021 Not Available [facility] 3 18:27:49 Pneumoni a 409607562 Active 2021 Not Available [facility] 3 18:27:48 Degenera tion of lumbar interver tebral disc 84479803 Active 2021 Not Available [facility] 3 18:27:48 Asthma 124864587 Active 2022 Not Available [facility] 3 18:27:48 Drug-ind uced hypokale juancarlos 838782684 Active 2022 Not Available [facility] 3 18:27:48 Pneumoni tis 754800705 Active 2022 Not Available [facility] 3 18:27:48 Cough 07351650 Active 2022 Sony Peacock DO [address] [facility], [place], [address], [facility] 3 14:11:35 Atrial fibrilla tion 24509870 Active 2022 CORNELIA ABARCA [address] [facility], [place], [address], [facility] 3 09:29:09 Niacin deficien cy 195582199 Active 2022 Sony Peacock, DO [address] [place] [address], [address], [facility] 3 15:29:58 Recurren t falls 300540486 Active 2022 Sony Peacock, DO [address] [place] [address], [address], [facility] 3 11:19:24 Type 2 diabetes mellitus 24492352 Active 2022 CORNELIA ABARCA [address] [place] [address], [address], [facility] 3 14:14:50 Abdomina l aortic aneurysm 352019096 Active 2023 CORNELIA ABARCA [address] [place] [address], [address], [facility] 4 15:11:58 Liver enzymes level above referenc e range 593755883 Active 2023 Sony Peacock, DO [address] [place] [address], [address], [facility] 4 22:10:50 Inflamma tory hyperker atotic dermatos is 79654105 Active 2023 Sony Peacock, DO [address] [place] [address], [address], [facility] 4 16:52:56 Suicidal thoughts 1816189 Active 2023 CORNELIA ABARCA [address] [place] [address], [address], [facility] 4 15:10:37 Insomnia 672471971 Active 2023 CORNELIA ABARCA [address] [place] [address], [address], [facility] 4 15:10:51 Nausea and vomiting 82103510 Active 2023 CORNELIA ABARCA [address] [place] [address], [address], [facility] 4 15:18:59 Panic disorder 814222044 Active 2023 CORNELIA ABARCA [address] [place], [address], [facility] 4 15:19:38 Osteoart hritis of right hip joint 02543434810 9107 Active 2023 Sony Peacock, DO [address] [place] [address], [address], [facility] 4 16:17:33 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 80255523427 9100 Active 2024 Sony Peacock, DO [address] [place] [address], [address], [facility] 5 15:13:15 Dyspnea on exertion 73826183 Active 2024 CORNELIA ABARCA [address] [place] [address], [address], [facility] 5 11:47:32 Type 1 diabetes mellitus 04216697 Active 2017 Not Available [facility] 3 18:27:49 Hyperlip idemia 70143954 Active 2017 Not Available [facility] 3 18:27:49 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 Not Available [facility] 3 18:27:48 Transien t cerebral ischemia 737393782 Active 2017, 08/2016 Not Available [facility] 3 18:27:48 Coronary arterios clerosis 08652127 Active 2017 Not Available [facility] 3 18:27:49 Coronary artery bypass graft operatio n planned 081355861 Active 2017 x3 Not Available [facility] 3 18:27:49 Hyperten sive disorder 92399100 Active 2017 Not Available [facility] 3 18:27:48 Osteoart hritis 975567983 Active 2017 neck, bilateral knees Not Available [facility] 3 18:27:49 Anxiety 63121001 Active 2017 Not Available [facility] 3 18:27:49 Stable angina 765781099 Active 2017 Not Available [facility] 3 18:27:48 Gastroes ophageal reflux disease 407022441 Active 2017 Not Available [facility] 3 18:27:48 Chronic obstruct melva pulmonar y disease 00007189 Active 2017 Not Available [facility] 3 18:27:48 May' s esophagu s 675338411 Active 2017 Not Available [facility] 3 18:27:48 History of tobacco use 47466089962 03 Active 2017 Not Available [facility] 3 18:27:48 Cardiome kate 0650689 Active 2017 mild Not Available [facility] 3 18:27:49 Onychomy cosis 327077572 Active 2017 Not Available [facility] 3 18:27:49 Carotid artery stenosis 76155630 Active 2017 Not Available [facility] 3 18:27:49 Cramp 66121763 Active 2017 Not Available [facility] 3 18:27:49 Orthosta tic hypotens ion 59680142 Active 2017 Not Available [facility] 3 18:27:48 Problem Notes None recorded. Procedures Surgical History Date Name Laterality Status Provider Name and Address Organization Details Recorded Time 025 Corticosteroid Injection completed Sony Peacock DO [address] [place] [address], [address], [facility] 11/06/2024 15:12:05 024 Excision and closure completed Sony Peacock DO [address] [place] [address], [address], [facility] 02/23/2024 16:47:58 021 Removal of Foreign Body completed CORNELIA ABARCA [address] [facility], [place], [address], [facility] 01/24/2021 14:18:21 Imaging Results None recorded. Procedure Notes None recorded. Medical Equipment None Reported. Allergies Allergen ID Allergen Name Allergen Category Reaction Reaction Severity Criticality Documentation Date Start Date Code Code System Note Provider Name and Address Organization Details Recorded Time 1963 Iodinated contrast media (substanc e) medicatio n Not available Not available Not available 04/18/2018 52314 2003 SNOMED Sherine gonzales [facility] 8 08:46:56 Medications Name Sig [...] Available tizanidine 4 mg tablet 1 tab [id number] prn. do not drink or drive with [...] Ultra-Fine Mini Pen Needle 31 gauge x 12/10 USE DIRECTED FOUR TIMES DAILY active Not [...] Available Not Available Not Available Dexcom G6 [employer] USE DIRECTED 01/01 completed Not Available Not [...] Not Available Not Available Not Avai lable BinaxPAIGE COVID-19 Ag Self Test kit TEST DIRECTED TODAY 05/01 completed Not Available Not Available Not Available Vitals Date Recorded Body height Body mass index (BMI) Body weight Heart rate Respiratory rate Oxygen saturation Oxygen saturation in Arterial blood by Pulse oximetry Systolic blood pressure Diastolic blood pressure Provider Name and Address Organization Details Last Updated DateTime 4 170.18 cm 21.3 kg/m2 31906.2 g 76 /min 16 /min 98 % 98 % 104 mm[Hg] 66 mm[Hg] Sony Peacock, DO [address] [place], [address] [place] [address] 4 16:21:18 Date Recorded Body height Body mass index (BMI) Body weight Heart rate Oxygen saturation Oxygen saturation in Arterial blood by Pulse oximetry Systolic blood pressure Diastolic blood pressure Provider Name and Address Organization Details Last Updated DateTime 4 170.18 cm 21.8 kg/m2 04719.9 8 g 78 /min 98 % 98 % 124 mm[Hg] 74 mm[Hg] Lis Chairez [facility] 4 14:59:09 Date Recorded Body height Body mass index (BMI) Body weight Heart rate Oxygen saturation Oxygen saturation in Arterial blood by Pulse oximetry Systolic blood pressure Diastolic blood pressure Provider Name and Address Organization Details Last Updated DateTime 5 170.18 cm 21.7 kg/m2 30636.6 2 g 64 /min 96 % 96 % 120 mm[Hg] 74 mm[Hg] Lis Chairez [facility] 5 11:39:43 Social History Question Answer Notes LastModified by Organizat ion Details LastModified Time Tobacco Smoking Status [facility] 11:44:09 What Was The Date Of [...] mcg/0.3 mL dose 1 completed Not Available [facility] 05/26/2023 18:27:49 COVID-19, mRNA, LNP-S, PF, 30 mcg/0.3 mL dose 2 completed Not Available [facility] 05/26/2023 18:27:49 influenza, unspecified formulation 2 completed Not Available [facility] 05/26/2023 18:27:49 influenza, unspecified formulation 4 completed Lis gonzales [facility] 06/09/2024 08:19:48 Influenza, split virus, quadrivalent, preservative 9 completed Not Available [facility] 05/26/2023 18:27:49 Tdap 1 completed Not Available [facility] 05/26/2023 18:27:49 COVID-19, mRNA, LNP-S, PF, 30 mcg/0.3 mL dose 1 completed Not Available [facility] 05/26/2023 18:27:49 COVID-19, mRNA, LNP-S, PF, 30 mcg/0.3 mL dose 1 completed Not Available [facility] 05/26/2023 18:27:49 pneumococcal polysaccharide PPV23 8 completed Not Available [facility] 05/26/2023 18:27:49 Influenza, split virus, quadrivalent, preservative 8 completed Not Available [facility] 05/26/2023 18:27:49 Past Encounters Encounter ID Performer Location Encounter Start Date Encounter Closed Date Diagnosis/Indication Diagnosis SNOMED-CT Code Diagnosis ICD10 Code Diagnosis Note [id number] Sony Peacock DO [facility] [address],[place] [address] 04/18/2018 10:22:11 04/18/2018 12:40:09 Chronic obstructive pulmonary disease 33412135 J44.9 Type 1 kat betes mellitus 41638270 E10.9 a1c is stable and is ok will cont current tx plan [id number] December ANGEL Villalpando [facility] [address],[place] [address] 05/06/2018 13:27:54 05/06/2018 16:40:13 History of tobacco use 7840756915 103 Z87.891 long time ago Hypertensive disorder 38 008161 I10 stable Pain of le ft shoulder joint 2297981228 4324718 M25.512 likely strain/spa sm of trapezius muscle. shoulder joint appears normal do not take methocarba mol and alprazolam at the same time. understand s no drinking or driving while on methocarba mol understand s medication may cause drowsiness rest/heat/ stretch/ma ssage Coronary arteriosclerosis 89286888 I25.10 on plavix can't take NSAIDS [id number] [facility] [address] [facility] [address],[place] [address] 05/11/2018 11:12:25 05/11/2018 13:23:40 Hypertensive disorder 77195068 I10 stable overall Type 1 kat betes mellitus 44039111 E10.9 a1c is stable and is ok will cont current tx plan Diarrhea 46910507 R19.7 no new antibiotic s needs labw work and to see GI for colonoscop y will refer to dr ponce [id number] [facility] [address],[place] [place] [place] [facility] [place] [address] 06/14/2018 15:17:42 06/14/2018 16:47:08 Type 1 diabetes mellitus 30975292 E10.9 a1c is stable and is ok will cont current tx plan at 6.7 Orthostati c hypotension 50358874 I95.1 currently has been stable and is without major issue Hypertensive disorder 38 922436 I10 stable overall no chng in meds Coronary arteriosclerosis 50782327 I25.10 quiet awaiting cardiology Chronic ob structive pulmonary disease 81813399 J44.9 still gets winded but using Breo with good results Gastroesop hageal reflux disease 985023318 K21.9 cont to use [place]c [place]ose[place] dir [id number] 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 3029 05839 K22.70 cont on omeprazole Type 1 kat betes mellitus 43043040 E10.9 a1c is stable and is ok will cont current tx plan at 7.1 (6.7) Hypertensive disorder 38 322456 I10 stable overall no chng in meds [id number] [facility] [address] [facility] [address],[place] [address] 03/21/2019 14:07:26 03/21/2019 15:58:48 Chronic obstructive pulmonary disease 89839410 J44.9 still getting winded at times but using Breo with pretty good results breo is to be cont Type 1 kat betes mellitus 71620208 E10.9 a1c is stable and is ok will cont current tx plan at 7.1 (7.2) Anxiety 38547345 F41.9 seems to be controlled Hypertensive disorder 38 913038 I10 stable overall bp is excellent has lost 5 lbs no chng in meds Coronary arteriosclerosis 57725152 I25.10 asymptomat ic no cp no exert dyspnea out of proportion to activity December ANGEL Villalpando [facility] [address] [facility] [address],[place] it[address] [employer] [place] [address] 06/07/2019 11:30:45 06/07/2019 12:10:00 Fatigue 51250652 R53.83 Vitamin D deficiency 347 90275 E55.9 Tick bite without infection 447382718 W57.XXXA Diarrhea 13626855 R19.7 Hypoglycemia 314076951 E 16.2 monitor blood sugar closely do not take insulin if blood sugar is lower than 100 healthy diet and fluids/res t if worsens or [place] [id number] [facility] [address] [facility] [address],[place] [address] 06/21/2019 10:33:00 06/21/2019 11:38:35 Chronic obstructive pulmonary disease 35747463 J44.9 still getting winded at times but using Breo with pretty good results breo is to be cont Hypertensive disorder 38 179518 I10 stable overall bp is excellent has lost 5 lbs but this has stopped no chng in meds Type 1 kat betes mellitus 35552463 E10.9 a1c is stable and is ok will cont current tx plan at 7.2 was 7.1 (7.2) Hepatitis C screening 41 9323842 Z11.59 Stable angina 480556836 I20.8 asymptomat ic relates has been using sl ntg which helps with belching but has not required for cp actual Cardiomegaly 1127043 I51 .7 quiet and no evid of chf Malaise and fatigue 2717 03027 R53.81 [id number] December [facility] [address] [facility] [address], [place] [address] 07/03/2019 14:23:55 07/03/2019 15:45:50 Diarrhea 84861994 R19.7 improving complete flagyl Chronic ob structive pulmonary disease 90101169 J44.9 copd exacerbati on fu if sx worsen or go to ER if severe use inhalers as rx'd watch blood sugar closely while on prednisone Hypertensive disorder 38 895531 I10 stable [id number] Malgorzata [facility] [address] [facility] [address], [place] [address] 07/12/2019 14:18:14 07/12/2019 15:37:16 Syncope 984902301 R55 as this has happened several times before, recommend seeing cardio pt should also see neuro as he has history of stroke and 2 tia Acute exac erbation of chronic obstructive pulmonary disease 746358440 J44.1 sx not resolved despite pred + zpack, then levaquin - still has 2 days remaining monitor bs closely while on the pred Diarrhea 48283931 R19.7 bowels are improving still on culturelle Anxiety 13026283 F41.9 lots of anxiety would like to have alprazolam increased Cerebrovas cular accident 424195523 I63.9 [id number] December [facility] [address] [facility] [address],[place] [address] 07/28/2019 13:36:19 07/28/2019 14:22:49 Diarrhea 62610792 R19.7 bowels are improving continue culturelle Syncope 382781573 R55 being worked up by cardio Tick bite 11740619 W57.X XXA no bullseye rash will monitor [place] [id number] December [facility] [address] [facility] [address],[place] [address] 09/08/2019 11:06:22 09/08/2019 11:46:43 Sick sinus syndrome 78852796 I49.5 pacemaker will be placed next week Diarrhea 08796705 R19.7 bowels are improving continue culturelle Acute sinusitis 21082477 J01.90 [id number] Sony Peacock, [facility] [address] [facility] [address],[place] [address] 10/31/2019 13:28:39 10/31/2019 15:03:18 Chronic obstructive pulmonary disease 48482063 J44.9 still getting winded at times but using Breo with pretty good results breo is to be cont Type 1 kat betes mellitus 25052876 E10.9 a1c is stable and is ok will cont current tx plan at 7.2 was 7.1 (7.2) Anxiety 91786141 F41.9 seems to be controlled Mobitz typ e II atrioventricular block 95832689 I44.1 Had pacer placed in Dec - no issues since feels well now [id number] [facility] [address] [facility] [address],[place] [address] 01/30/2020 13:42:29 01/30/2020 15:23:34 Chronic obstructive pulmonary disease 08928367 J44.9 still getting winded at times but using Breo with pretty good results breo is to be cont and samples were given also gave him some n95 masks Hypertensive disorder 38 795315 I10 stable overall bp is excellent has lost 5 lbs but this has stopped no chng in meds Type 1 kat betes mellitus 40773428 E10.9 a1c is stable and is ok will cont current tx as his glucose readings have dropped off and is now using lower doses of the lantus Anxiety 79822963 F41.9 seems to be controlled [id number] [facility] [address] [facility] [address],[place] [address] 03/27/2020 12:08:21 03/27/2020 12:32:16 Type 1 diabetes mellitus 80673795 E10.9 glucose going low at times and [...] check ing his levels Cerebrovas cular accident 847863141 I63.9 no furtther issues and is asymptomat ic Coronary arteriosclerosis 14422099 I25.10 asymptomat ic no cp no exert dyspnea out of proportion to activity Chronic ob structive pulmonary disease 72262654 J44.9 still getting winded at times but using Breo with pretty good results breo is to be cont and samples were given also gave him some n95 masks Hypertensive disorder 38 421061 I10 stable overall bp is excellent has lost 5 lbs but this has stopped no chng in meds [id number] [facility] [address] [facility] [address],[place] [address] 05/15/2020 13:49:29 05/15/2020 14:55:22 Chronic obstructive pulmonary disease 09189411 J44.9 still getting winded at times but using Breo with pretty good results breo is to be cont and samples were given also gave him some n95 masks Type 1 kat betes mellitus 20966824 E10.9 glucose going low at times and [...] the amount of testing he requires Anxiety 09480752 F41.9 seems to be controlled he is walking his neighbor's dog and this has helped Hypertensive disorder 38 738697 I10 stable overall bp is excellent had lost 5 lbs but this is now better no chng in meds [id number] Sony Peacock, [facility] [address] [facility] [address],[place] [address] 08/14/2020 13:51:54 08/14/2020 16:52:21 Type 1 diabetes mellitus 12177069 E10.9 wglucose going low at times and [...] 6+ times a day unfortunat dinah Hyperlipidemia 24118262 E78.5 will be following Chronic ob structive pulmonary disease 39037242 J44.9 still getting winded at times but using Breo with pretty good results breo is to be cont and samples were given also gave him some n95 masks Coronary arteriosclerosis 28652389 I25.10 asymptomat ic no cp no exert dyspnea out of proportion to activity relates no presyncope etc as he has the pacer defib Hypertensive disorder 38 428757 I10 stable overall bp is excellent had lost 5 lbs but this is now better no chng in meds [id number] DO Flakita Coleman [facility] [address] [facility] [address],[place] [address] 11/19/2020 14:37:35 11/19/2020 15:56:50 Type 1 diabetes mellitus [id number] E10.9 patient had completely uncontroll ed glucose [...] 6+ times a day unfortunat dinah Anxiety 47855594 F41.9 seems to be controlled he is walking his neighbor's dog and this has helped Hypertensive disorder 38 893893 I10 stable overall bp is excellent had lost 5 lbs but this is now better no chng in meds Chronic ob structive pulmonary disease 21854942 J44.9 still getting winded at times but using Breo with pretty good results breo is to be cont and samples were given also gave him some n95 masks Cerebrovas cular accident 220710232 I63.9 no furtther issues and is asymptomat ic but is now on eliquis due to palpitatio ns and tachycardi a Carotid ar edith stenosis 78888400 I65.29 will be needing a rechk in the summer Coronary arteriosclerosis 17597129 I25.10 asymptomat ic no cp no exert dyspnea out of proportion to activity relates no presyncope etc as he has the pacer defib [id number] DO [facility] [address], [place] [address] 12/04/2020 15:16:28 12/04/2020 15:47:40 Type 1 diabetes mellitus 50492870 E10.9 patient had some uncontroll ed glucose [...] insurance denied the freestyle leyla which SUCKS [email or web address] insurance SUCKS he will have to keep checking his glucose 6+ times a day unfortunat dinah Atrial fibrillation 4943 6004 I48.91 currently stableon amiodarone 200 bid followed by cardiology Carotid ar edith stenosis 14412348 I65.29 will be needing a rechk in the summer Coronary arteriosclerosis 50325075 I25.10 asymptomat ic no cp no exert dyspnea out of proportion to activity relates no presyncope etc as he has the pacer defib Paroxysmal atrial fibrillation 576136684 I48.0 here now is controlled and in NSR after he was placed on amiodarone 200 bid and his pain is still present with any exertion Hypertensive disorder 38 397744 I10 stable overall bp is excellent had lost 5 lbs but this is now better no chng in meds will need to watch closely given increase in prob angina and new onset afib 40913 DO [facility] [address] [facility] [address],[place] [address] 01/01/2021 14:09:00 01/01/2021 15:26:46 Chronic obstructive pulmonary disease 19101307 J44.9 still getting winded at times but using Breo with pretty good results breo is to be cont and samples were given also gave him some n95 masks Hypertensive disorder 38 424475 I10 stable overall bp is excellent had lost 5 lbs but this is now better no chng in meds will need to watch closely given increase in prob angina and new onset afib Type 1 kat betes mellitus 59228958 E10.9 patient had some uncontroll ed glucose [...] insurance denied the freestyle leyla which SUCKS [email or web address] insurance SUCKS he will have to keep checking his glucose 6+ times a day unfortunat dinah Depressive disorder 0089 9003 F32.9 feeling down overall reviewed in detail and will rechk in a few weeks as he doesnt want to hav e a new med now Coronary arteriosclerosis 21198760 I25.10 asymptomat ic no cp no exert dyspnea out of proportion to activity relates no presyncope etc as he has the pacer defib Paroxysmal atrial fibrillation 118041490 I48.0 here now is controlled and in NSR after he was placed on amiodarone 200 bid and his pain is still present with any exertion [id number] [facility] [address] [facility] [address],[place] [address] 01/17/2021 14:00:31 01/17/2021 15:09:09 Type 1 diabetes mellitus 02896534 E10.[address] with gwen n process [id number] [facility] [address] [facility] [address],[place] [address] 01/24/2021 13:58:04 01/24/2021 16:46:09 Infection of tick bite 204027804 B99.9 removed and will treat with doxy [id number] CORNELIA ABARCA [facility] [address] [facility] [address],[place] [address] 01/27/2021 11:24:35 01/27/2021 14:19:46 Type 1 diabetes mellitus 45451287 E10.[address] with instructio n process will call if any further confusion [id number] CORNELIA ABARCA [facility] [address] [facility] [address],[place] [address] 01/28/2021 13:58:48 01/29/2021 08:40:53 Warfarin monitoring status 660574249 Z51.81 sent referral patient has correct medication will fu with coumadin clinic for monitoring Type 1 kat betes mellitus 47448518 E10.[address] with instructio n process will call if any further confusion [id number] Sony Peacock DO [facility] [address] [facility] [address], [place] [address] 02/17/2021 13:52:52 02/17/2021 14:48:35 Type 1 diabetes mellitus 59985321 E10.9 patient had some uncontroll ed glucose [...] 6+ times a day unfortunat dinah Anxiety 99410794 F41.9 seems to be controlled but still quite upset re his med insurance he is walking his neighbor's dog and this has helped Hypertensive disorder 38 264382 I10 stable overall bp is excellent had lost 5 lbs but this is now better no chng in meds will need to watch closely given increase in prob angina and new onset afib Chronic ob structive pulmonary disease 27666662 J44.9 still getting winded at times but using Breo with pretty good results but insurance wont cover despite PA we will try a letter Paroxysmal atrial fibrillation 497143124 I48.0 here now is controlled and in NSR after he was placed on amiodarone 200 bid and his pain is still present with any exertion insur will not provide for eliquis we will try warfarin and see how he does Coronary arteriosclerosis 24553515 I25.10 asymptomat ic no cp no exert dyspnea out of proportion to activity relates no presyncope etc as he has the pacer defib 95341 Sony Peacock DO [facility] [address] [facility] [address],[place] [address] 03/24/2021 13:53:11 03/24/2021 14:59:29 Chronic obstructive pulmonary disease 47955539 J44.9 still getting winded at times but using Breo with pretty good results but insurance wont cover despite PA we tried a letter without help Stable angina 622476500 I20.8 asymptomat ic relates has been using sl ntg which helps with belching but has not required for cp actual relates that he exerts he does get sob and stops doing thatcardio lo states it was ok to increase dose of isosrb to 90mg and i changed the rx to reflect that [id number] Sony Peacock DO [facility] [address] [facility] [address],[place] [address] 06/25/2021 08:17:04 06/25/2021 15:25:16 Hypertensive disorder 38197273 I10 stable overall bp is excellent had lost 5 lbs but this is now better no chng in meds will need to watch closely given increase in prob angina and new onset afib Type 1 kat betes mellitus 96703416 E10.9 now on freestyle leyla and is [...] for the meals s Paroxysmal atrial fibrillation 585809530 I48.0 here now is controlled and in NSR after he was placed on amiodarone 200 bid and his pain is still present with any exertion insur will not provide for eliquis we will try warfarin and see how he does Coronary arteriosclerosis 70862808 I25.10 asymptomat ic no cp no exert dyspnea out of proportion to activity relates no presyncope etc as he has the pacer defibrelat es he is frustrated that he gets more winded with exertion 19415 Sony Peacock, DO [facility] [address] [facility] [address],[place] [address] 10/24/2021 08:41:04 10/24/2021 12:14:02 Paroxysmal atrial fibrillation 503812841 I48.0 here now is controlled and in NSR after he was placed on amiodarone 200 bid and his pain is still present with any exertion insur will not provide for eliquis we will try warfarin and see how he does Cerebrovas cular accident 692761024 I63.9 no further issues and is asymptomat ic but is now on eliquis due to palpitatio ns and tachycardi a Stable angina 235977111 I20.8 asymptomat ic relates has been using sl ntg which helps with belching but has not required for cp actual relates that he exerts he does get sob and stops doing thatcardio lo states it was ok to increase dose of isosrb to 90mg and i changed the rx to reflect that Type 1 kat betes mellitus 45393291 E10.9 now on freestyle leyla and is [...] the meals Chronic ob structive pulmonary disease 59660397 J44.9 still getting winded at times but using Breo with pretty good results but insurance wont cover despite PA we tried a letter without help [id number] Sony Peacock DO [facility] [address] [facility] [address],[place] [address] 01/30/2022 11:22:10 01/30/2022 12:13:21 Paroxysmal atrial fibrillation 660152127 I48.0 here now is controlled and in NSR and is cont to be on amiodarone 200 bid and his pain is still present with any exertion insur will not provide for eliquis we will try warfarin and see how he does Type 1 kat betes mellitus 50607989 E10.9 Given the extreme difficulti es checking [...] of 10 for the meals Depressive disorder 0663 1740 F32.9 feeling down overall reviewed in detail and will rechk in a few weeks as he doesnt want to hav e a new med now [id number] Sony Peacock DO [facility] [address] [facility] [address],[place] [address] 05/01/2022 10:20:06 05/01/2022 12:38:03 Paroxysmal atrial fibrillation 936633960 I48.0 here now is controlled and in NSR and is cont to be on amiodarone 200 bid and his pain is still present with any exertion insur will not provide for eliquis we will try warfarin and see how he does Hypertensive disorder 38 023524 I10 stable overall bp is excellent had lost 5 lbs but this is now better no chng in meds will need to watch closely given increase in prob angina and new onset afib Type 1 kat betes mellitus 55550426 E10.9 Given the extreme difficulti es checking [...] for the meals Active or passive immunization 538231514 Z23 advised due for shingles- he isn't sure if he will get due to cost Congestive heart failure 71615256 I50.9 followed by cardiologi Depressive disorder 2094 9007 F32.9 feeling down overall relates not interested in treating however.. reviewed in detail and he doesnt want to have a new med now Hyperlipidemia 55145662 E78.5 will be following [id number] Sony Peacock DO [facility] [address] [facility] [address],[place] [address] 08/24/2022 11:26:57 08/24/2022 13:49:15 Type 2 diabetes mellitus 71937794 E11.9 Congestive heart failure 32893687 I50.9 followed by cardiologi ruba is still on 60 mg of lasix daily per cardiology Chronic ob structive pulmonary disease 00513881 J44.9 still getting winded at times but using Breo with pretty good results but insurance wont cover despite PA we tried a letter without help Hypertensive disorder 38 370615 I10 stable overall bp is excellent had lost 5 lbs but this is now better no chng in meds will need to watch closely given increase in prob angina and new onset afib Coronary arteriosclerosis 76260458 I25.10 asymptomat ic no cp no exert dyspnea out of proportion to activity relates no presyncope etc as he has the pacer defibrelat es he is frustrated that he gets more winded with exertion Paroxysmal atrial fibrillation 520040046 I48.0 here now is controlled and in NSR and is cont to be on amiodarone 200 bid and his pain is still present with any exertion insur will not provide for eliquis we will try warfarin and see how he does [id number] Sony Peacock, DO [facility] [address] [facility] [address],[place] [address] 12/21/2022 09:58:00 12/21/2022 10:45:31 Type 2 diabetes mellitus 76096557 E11.9 long discussion with his machine and he will h=get [id number] is 7.1 Hypertensive disorder 38 613003 I10 stable overall bp is excellent had lost 5 lbs but this is now better no waite in meds will need to watch closely given increase in prob angina and new onset afib Anxiety 30487433 F41.9 seems to be controlled but still quite upset re his med insurance he is walking his neighbor's dog and this has helped Asthma 258499679 J45.90 9 stable and no issues doesnt have any Breo samples Depressive disorder 3548 9007 F32.9 Paroxysmal atrial fibrillation 560077931 I48.0 here now is controlled and in NSR and is cont to be on amiodarone 200 bid and his pain is still present with any exertion insur will not provide for eliquis we will try warfarin and see how he does Congestive heart failure 86028886 I50.9 followed by cardiologi struba is still on 60 mg of lasix daily per cardiology Cardiomegaly 8972465 I51 .7 quiet and no evid of chf Stable angina 008279200 I20.8 asymptomat ic relates has been using sl ntg which helps with belching but has not required for cp actual relates that he exerts he does get sob and stops doing thatcardio lo states it was ok to increase dose of isosrb to 90mg and i changed the rx to reflect that Cerebrovas cular accident 359221726 I63.9 no further issues and is asymptomat ic but is now on eliquis due to palpitatio ns and tachycardi a Chronic ob structive pulmonary disease 49994323 J44.9 still getting winded at times but using Breo with pretty good results but insurance wont cover despite PA we tried a letter without help [id number] CORNELIA ABARCA [facility] [address] [facility] [facility] [address],[place] [address] 02/12/2023 09:41:24 02/12/2023 11:26:16 Pre-surgery evaluation 200334689 Z01.818 The patient was seen in the office today for pre-op evaluation . All medical conditions on patient's problem list were addressed and are currently stable, no interventi on needed at this time. Based on history and physical performed, the patient is cleared for surgery. Chronic ob structive pulmonary disease 41531197 J41.0 needs refill [id number] Sony Peacock DO [facility] [address] [facility] [address],[place] [address] 07/16/2023 14:48:13 07/16/2023 15:44:16 Congestive heart failure 65071281 I50.9 followed by cardiologi sthe is still on 60 mg of lasix daily per cardiology Atrial fibrillation 4943 6004 I48.91 currently stableon amiodarone 200 bid followed by cardiology Coronary a rtery bypass graft operation planned 649205485 Z78.9 waiting for cardiology appt Coronary arteriosclerosis 61549782 I25.10 asymptomat ic no cp no exert dyspnea out of proportion to activity relates no presyncope etc as he has the pacer defibrelat es he is frustrated that he gets more winded with exertion Type 1 kat betes mellitus 93369525 E10.9 relates has not yet gotten his [...] 10 for the meals Hypertensive disorder 38 124941 I10 stable overall bp is excellent had lost 5 lbs but this is now better no ravindra in meds will need to watch closely given increase in prob angina and new onset afib Chronic ob structive pulmonary disease 56002653 J41.0 still getting winded at times but using Breo with pretty good results but insurance wont cover despite PA we tried a letter without help Depressive disorder 3548 9007 F32.9 has not tolerated escitalopr am , mirtazapin e unhelpfulw e will have him try trazodone 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 [id number] Sony Peacock, [facility] [address] [facility] [address],[place] [address] 09/13/2023 10:59:21 09/13/2023 11:54:31 Congestive heart failure 84391102 I50.9 followed by cardiologi ruba is still on 60 mg of lasix daily per cardiology Asthma 549014248 J45.90 9 stable and no issues Chronic ob structive pulmonary disease 32926489 J41.0 still doing about the same still getting winded at times but using Breo with pretty good results but insurance wont cover despite PA we tried a letter without help Coronary arteriosclerosis 75143870 I25.10 asymptomat ic no cp no exert dyspnea out of proportion to activity relates no presyncope etc as he has the pacer defibrelat es he is frustrated that he gets more winded with exertion Hyperlipidemia 30071280 E78.5 will be following Hypertensive disorder 38 239140 I10 stable overall bp is excellent had lost 5 lbs but this is now better no ravindra in meds will need to watch closely given increase in prob angina and new onset afib Type 1 kat betes mellitus 78706943 E10.9 a1c is 7.6 now on lantus [...] of 10 for the meals Recurrent falls 95786503 2 R29.6 not able to get up at times feeling weak and unsteady at times [id number] CORNELIA ABARCA [facility] [address] [facility] [address],[place] [address] 12/14/2023 14:45:55 12/14/2023 16:05:18 Chronic obstructive pulmonary disease 28394382 J41.0 needs refill Abdominal aortic aneurysm 389883049 I71.40 recheck in a few month to see if the size has increased [id number] Sony Peacock DO [facility] [address] [facility] [address] [facility],[place] [address] 01/14/2024 13:35:31 01/14/2024 14:39:23 Adult health examination 941606747 Z00.00 will start trintellix in a couple weeks Screening for cardiovascular system disease 907129806 Z13.6 will change to xarelto and see him in a month Screening for malignant neoplasm of colon 233445929 Z12.11 Type 2 kat betes mellitus 45528631 E11.9 long discussion with his machine and he will h=get nmbwkinx6s is 7.1 Drug-induc ed hypokalemia 042059103 E87.6 457475 Sony Peacock DO [facility] [address] [facility] [facility],[place] [address] 02/18/2024 11:13:25 02/18/2024 13:55:38 Asthma 775747887 J45.909 stable and no issues Depression screening 171 105400 Z13.31 neg much better now Type 2 kat betes mellitus 67318646 E11.9 long discussion with his machine and he will h=get iutyvtgs4c is 7.1 Atrial fibrillation 4943 6004 I48.91 currently stableon amiodarone 200 bid followed by cardiology xarelto much better due to side effects from eliquis Type 1 kat betes mellitus 64315629 E10.9 a1c is 7.6 now on lantus [...] 10 for the meals Cerebrovas cular accident 657094903 I63.9 no further issues and is asymptomat ic but is now on xarelto due to palpitatio ns and tachycardi a [id number] Sony Peacock DO [facility] [address] [facility] [address],[place] [address] 02/23/2024 16:08:47 02/23/2024 16:51:33 Chronic obstructive pulmonary disease 83253210 J41.0 still doing about the same still getting winded at times but using Breo with pretty good results but insurance wont cover despite PA we tried a letter without help Inflammato ry hyperkeratotic dermatosis 73374733 L85.8 excision well alex and sent home with wound care and extra bandages etc [id number] CORNELIA ABARCA [facility] [address] [facility] [address],[place] [address] 04/24/2024 14:48:06 04/24/2024 18:02:27 Depression screening 121735131 Z13.31 discussed options, declines interventi on at this time Type 2 kat betes mellitus 41220117 E11.9 needs refill Type 1 kat betes mellitus 82482280 E10.[address] with instructio n process will call if any further confusion [id number] CORNELIA ABARCA [facility] [address] [facility],[place] [address] 07/04/2024 14:49:49 07/04/2024 15:52:52 Insomnia 903663015 G47.09 continue melatonin or APAP PM PRN or xanax for sleepother meds haven't worked Suicidal thoughts 738430 6 R45.851 stable today per patient Nausea and vomiting 1693 2000 R11.2 will start on zofran Panic disorder 526670285 F41.0 start on hydroxyzin e for anxiety [id number] Sony Peacock DO [facility] [address] [facility] [address],[place] [address] 11/06/2024 14:33:48 11/06/2024 15:22:15 Osteoarthritis of joint of right shoulder region 6753573001 72774 M19.011 tolerated monisha inj [id number] CORNELIA ABARCA [facility] [address] [facility],[place] [address] 01/09/2025 11:30:57 01/10/2025 10:53:42 Dyspnea on exertion 42824237 R06.09 Chronic ob structive pulmonary disease 68582659 J41.0 increase to 200 mcg-62.5 mcg Type 2 kat betes mellitus 07109593 E11.9 will set up with routine testing Health Concerns Section Related Observation LastModified by Organization Detai ls LastModified Time None Recorded Concern Status LastModified by Organization Details LastModified Time None Recorded Advance Directives Directive None Recorded Payers Encounter Date Sequence Insurance Name Policy Number Policy Baca Covered Member ID Baca Member ID Guarantor Name 02/23/2024 2 [place] [id number] Pedrito Headley Sr [id number] Chi Headley 02/23/2024 1 [place] [employer] Chi Headley [id number] Chi Headley 04/24/2024 2 [place] [id number] Pedrito Headley Sr [id number] Chi Headley 04/24/2024 1 [place] Chi Lemusmp [id number] Chi Rausch Headley 07/04/2024 2 [place] [id number] Pedrito Lemusmp Sr [id number] Chi Rausch Headley 07/04/2024 1 [place] Chi Rausch Headley [id number] Chi Rausch Headley 11/06/2024 2 [place] [id number] Pedrito Rausch Headley Sr [id number] Chi Rausch Headley 11/06/2024 1 [place] Chi Rausch Headley [id number] 87 Chi Rausch Headley 01/09/2025 2 [place] [id number] Pedrito Rausch Headley Sr [id number] Chi Rausch Headley 01/09/2025 1 [place] Chi Lemusmp [id number] Chi Headley Notes Date Note Type Note Provider Name a mo Address Organization Details Recorded Time 02/23/2024 text/html here for hyperkeratotic lesion removal Sony Peacock, DO [address] [facility], [place], [address], [facility] 02/25/2024 06:04:23 04/24/2024 text/html f/u [...] on L4 to L5 and L5 to [id number] reports he thinks it is his circulation though he does not have a symptoms otherwise suggestive of circulation issues with his legs and he sees his director digital sales regularly staying active needs to change to Freestyle Leyla 3 his sugar has been down-trending, has been using less humalog around to 6 to 7 units a day, monitor closely on his freestyle CORNELIA ABARCA [address] [place], [address], [facility] 04/24/2024 14:58:14 07/04/2024 text/html hospital f.u the patient was admitted under a section 12 due to comments about SIwas admitted to [facility] then transferred to a respite in [place], [place] the patient was also found to have pneumonia, start on abx and pred which was successful the patient has concerns today about insomnia notes that he is getting help with usp and has family around her The patient [...] treatment for mental health. working with the [place] on aging and a social and human services assistant for housing filling out the paperwork for the housing CORNELIA ABARCA [address] [place], [address], [facility] 07/04/2024 15:20:50 11/06/2024 text/html here for monisha in j and has been very sore Sony Peacock DO [address] [place], [address], [facility] 11/06/2024 15:16:24 01/09/2025 text/html c/o [...] plan for patient to have CORNELIA ABARCA [address] [place] [address], [address], [facility] 01/09/2025 12:03:17
[2025-01-10 19:36] LABS: Folate 12.3 ng/mL (> or = 4.0); Vitamin B12 916 pg/mL (200-900)
== END 2025-01-10 14:18 | disposition home or self-care (01) ==
LOC: HO.MANLDS 14:17
PROVIDERS: Visit Provider Physician Assistant
DX: R74.8 Abnormal levels of other serum enzymes (principal)
CPT/HCPCS: 36415; 82607; 82746